=== PATIENT | male | born 1950 | race Caucasian/White ===

== ENCOUNTER 2018-07-14 18:35 | Emergency (ER) | payer OTHER ==
[2018-07-14] MEDS ORDERED: ONDANSETRON 4 MG/2 ML VIAL ONE (19:40)
[2018-07-14] MEDS ORDERED: MECLIZINE HCL 12.5 MG TAB ONE (19:41)
--- NOTE | 2018-07-14 19:49 | RAD REPORT ---
EXAM DESCRIPTION: RAD - Chest Single View - 07/14/2018 7:41 pm CLINICAL HISTORY: Dizziness Chest pain. COMPARISON: Chest Single View dated 07/14/2016; CHEST PA AND LAT 2 VIEW dated 10/09/2008; CHEST PA AND L AT 2 VIEW dated 09/26/2005 FINDINGS: Portable technique limits examination quality. The lungs are grossly clear. The heart is normal in size. No displaced fractures. IMPRESSION: No acute intrathoracic process suspected.
[2018-07-14 19:55] LABS: Absolute Lymphocytes (CBC) 1.5 K/uL (0.7-4.9); Absolute Monocytes 0.5 K/uL (0.1-1.3); Absolute Neutrophil 7.6 K/uL (1.8-8.0); Basophils % 0.6 % (0-1.3); Eosinophils % 1.1 % (0-4.4); Hematocrit 41.5 % (39.6-49.0); Lymphocytes % 15.4 % (15.3-44.8); MPV 8.3 fL (7.6-11.3); Monocytes % 5.3 % (3.3-12.3); RBC Red Blood Cell Count 4.61 M/uL (4.33-5.43)
[2018-07-14 19:57] LABS: Protime INR 1.07
[2018-07-14 20:13] LABS: ALT/SGPT 18 U/L (12-78); AST/SGOT 15 U/L (15-37); Albumin 3.5 g/dL (3.4-5.0); Alkaline Phosphatase 98 U/L (45-117); BUN Blood Urea Nitrogen 15 mg/dL (7-18); Bicarbonate 29 mmol/L (21-32); Bilirubin Direct 0.1 mg/dL (0-0.2); Bilirubin Total 0.4 mg/dL (0.2-1.0); Glucose Level 95 mg/dL (74-106); Magnesium 2.5 mg/dL (1.8-2.4); NT PRO-BNP 9 pg/mL (<125); Potassium 3.3 mmol/L (3.5-5.1); Sodium Level 140 mmol/L (136-145); Troponin (Emerg Dept Use Only) < 0.02 ng/mL (0.0-0.045)
--- NOTE | 2018-07-14 20:26 | RAD REPORT ---
EXAM DESCRIPTION: CT - Head Brain Wo Cont - 07/14/2018 8:20 pm CLINICAL HISTORY: DIZZINESS Hypertension, drowsiness COMPARISON: Ct Stroke Brain Wo Cont dated 07/14/2016 TECHNIQUE: All CT scans are performed using dose optimization technique as appropriate and may inclu de automated exposure control or mA/KV adjustment according to patient size. FINDINGS: No intracranial hemorrhage, hydrocephalus or extra-axial fluid collection.Mild periventric ular chronic microvascular ischemic changes.No areas of brain edema or evidence of midline shift. Mild fluid is present in both maxillary antra, greater on the left. The calvarium is intact. IMPRESSION: No acute intracranial abnormality. Mild maxillary sinus fluid.
[2018-07-14] MEDS ORDERED: DIAZEPAM 5 MG TABLET ONE (21:32)
--- NOTE | 2018-07-14 22:54 | ER ---
Nurse's Notes [facility] Name: Moo Villalta Age: 67 yrs Sex: Male : 1950 Arrival Date: 07/14/2018 Time: 18:39 Bed 17 Private MD: Pk Estrada E Diagnosis: Benign paroxysmal vertigo Presentation: 07/14 18:43 Presenting complaint: Patient states: Around 1400 got dizzy after I moved my head, feel jl7 like I'm kind of swimming and nauseous. Transition of care: patient was not received from another setting of care. Onset of symptoms was July 14, 2018 at 14:00. Risk Assessment: Do you want to hurt yourself or someone else? Patient reports no desire to harm self or others. Initial Sepsis Screen: Does the patient meet any 2 criteria? No. Patient's initial sepsis screen is negative. Does the patient have a suspected source of infection? No. Patient's initial sepsis screen is negative. Care prior to arrival: None. 18:43 Method Of Arrival: Ambulatory [facility] 18:43 Acuity: ANDREW 3 jl7 Triage Assessment: 18:45 General: Appears in no apparent distress. uncomfortable, Behavior is calm, cooperative, jl7 appropriate for age. Pain: Denies pain. Neuro: Level of Consciousness is awake, alert, obeys commands, Reports dizziness. Historical: - Allergies: 18:45 No Known Allergies; jl7 - Home Meds: 18:45 lisinopril Oral [Active]; Hydrochlorothiazide Oral [Active]; jl7 - PMHx: 18:45 Hypertension; jl7 - Immunization history:: Adult Immunizations not up to date. - Social history:: Smoking status: Patient/guardian denies using tobacco. - Ebola Screening: : No symptoms or risks identified at this time. Screenin:41 Abuse screen: Denies threats or abuse. Denies injuries from another. Nutritional rr5 screening: No deficits noted. Tuberculosis screening: No symptoms or risk factors identified. Fall Risk IV access (20 points). Assessment: 19:05 General: Appears in no apparent distress. uncomfortable, Behavior is calm, cooperative, rr5 appropriate for age. Pain: Denies pain. Neuro: Level of Consciousness is awake, alert, obeys commands, Oriented to person, place, time, situation, Appropriate for age. Neuro: Reports dizziness. Cardiovascular: Capillary refill < 3 seconds Patient's skin is warm and dry. Respiratory: Airway is patent Respiratory effort is even, unlabored, Respiratory pattern is regular, symmetrical. GI: Abdomen is flat, Reports nausea, vomiting. : No signs and/or symptoms were reported regarding the genitourinary system. EENT: No signs and/or symptoms were reported regarding the EENT system. Derm: Skin is intact, Skin temperature is warm. Musculoskeletal: Capillary refill < 3 seconds, Range of motion: intact in all extremities. 20:10 Reassessment: Patient appears in no apparent distress at this time. Patient and/or rr5 family updated on plan of care and expected duration. Pain level reassessed. Patient states symptoms have improved. 21:00 Reassessment: Patient appears in no apparent distress at this time. Patient and/or rr5 family updated on plan of care and expected duration. Pain level reassessed. Patient states feeling better. Patient states symptoms have improved. 21:56 Reassessment: Patient appears in no apparent distress at this time. Patient and/or rr5 family updated on plan of care and expected duration. Pain level reassessed. no complaints made. Patient denies pain at this time. Patient states feeling better. Patient states symptoms have improved. 23:07 Reassessment: Patient appears in no apparent distress at this time. Patient and/or rr5 family updated on plan of care and expected duration. Pain level reassessed. discharge instruction given and explained without complaints made. Patient denies pain at this time. Patient states feeling better. Patient states symptoms have improved. Vital Signs: 18:45 BP 140 / 96; Pulse 80; Resp 16 S; Temp 99.4(O); Pulse Ox 96% on R/A; Weight 84.37 kg jl7 (R); Height 5 ft. 11 in. (180.34 cm) (R); Pain 0/10; 20:00 BP 132 / 83; Pulse 73; Resp 19; Pulse Ox 99% ; rr5 21:00 BP 138 / 100; Pulse 71; Resp 16; Pulse Ox 99% ; rr5 21:56 BP 120 / 78; Pulse 74; Resp 16; Pulse Ox 98% ; rr5 23:00 BP 115 / 73; Pulse 73; Resp 16; Pulse Ox 99% ; rr5 18:45 Body Mass Index 25.94 (84.37 kg, 180.34 cm) jl7 ED Course: 18:39 Patient arrived in ED. mr 18:40 Pk Estrada MD is Private Physician. mr 18:44 Triage completed. jl7 18:45 Arm band placed on right wrist. jl7 19:03 Eduardo Khan NP is PHCP. pm1 19:05 Patient has correct armband on for positive identification. Placed in gown. Bed in low rr5 position. Call light in reach. Side rails up X2. cafeteria monitor on. Pulse ox on. NIBP on. 19:27 Kade Yung MD is Attending Physician. pm1 19:27 Cali Peng RN is Primary Nurse. rr5 19:41 XRAY Chest (1 view) In Process Unspecified. EDMS 19:48 Inserted saline lock: 22 gauge in left forearm, using aseptic technique. Blood gm collected. 19:48 Initial lab(s) drawn, by sc, sent to lab. gm 20:[address] 2 20:20 CT completed. Patient tolerated procedure well. Patient moved back from CT. nj 20:20 CT Head Brain wo Cont In Process Unspecified. EDMS 23:08 No provider procedures requiring assistance completed. IV discontinued, intact, rr5 bleeding controlled, No redness/swelling at site. Pressure dressing applied. Administered Medications: 19:50 Drug: Zofran 4 mg Route: IVP; Site: left forearm; rr5 23:00 Follow up: Response: No adverse reaction rr5 19:52 Drug: Meclizine 50 mg Route: PO; rr5 23:00 Follow up: Response: No adverse reaction rr5 21:25 Drug: Valium 5 mg Route: PO; rr5 23:00 Follow up: Response: No adverse reaction rr5 Outcome: 22:53 Discharge ordered by . pm1 23:09 Discharged to home ambulatory, with family. rr5 23:09 Condition: stable 23:09 Discharge instructions given to patient, family, Instructed on discharge instructions, follow up and referral plans. medication usage, Demonstrated understanding of instructions, follow-up care, medications, Prescriptions given X 3. 23:10 Patient left the ED. rr5 Signatures: Dispatcher [employer] EDMI Andres Lisette mr Eduardo Khan, AGRICULTURE ENGINEER AGRICULTURE ENGINEER pm1 Chapincito Salgado Jahala, RN RN jl7 Isabel Cano 2 Cali Peng, RN RN rr5 Isatu Grimm gm
--- NOTE | 2018-07-14 22:55 | EDPHYS ---
Physician Documentation [facility] Name: Moo Villalta Age: 67 yrs Sex: Male : 1950 Arrival Date: 07/14/2018 Time: 18:39 Bed 17 Private MD: Pk Estrada E ED Physician Kade Yung HPI: 07/14 19:30 This 67 yrs old Male presents to ER via Ambulatory with complaints of pm1 Dizziness, High Blood Pressure. 19:30 The patient presents with vertigo. Onset: The symptoms/episode began/occurred at 14:00. pm1 Context: occurred at home, occurred while the patient was turning head side to side. just prior to the episode the patient experienced no apparent symptoms. Modifying factors: The symptoms are alleviated by holding head still, the symptoms are aggravated by movement of head, standing up, changing position. Associated signs and symptoms: Pertinent negatives: abdominal pain, chest pain, focal weakness, nausea, near-syncope, numbness, shortness of breath, tingling, vomiting. Severity of symptoms: in the emergency department the symptoms are unchanged Pain is currently a 0 / 10. Patient's baseline: Neuro: alert and fully oriented, Motor: no deficits, Ambulation: walks without assistance, Speech: normal. The patient has experienced a previous episode, many years ago. The patient has not recently seen a physician. 19:30 Has had sore throat, cough and congestion for the past few days. pm1 Historical: - Allergies: 18:45 No Known Allergies; jl7 - Home Meds: 18:45 lisinopril Oral [Active]; Hydrochlorothiazide Oral [Active]; jl7 - PMHx: 18:45 Hypertension; jl7 - Immunization history:: Adult Immunizations not up to date. - Social history:: Smoking status: Patient/guardian denies using tobacco. - Ebola Screening: : No symptoms or risks identified at this time. ROS: 19:30 Constitutional: Negative for fever, chills, and weight loss, Eyes: Negative for injury, pm1 pain, redness, and discharge, Neck: Negative for injury, pain, and swelling, Cardiovascular: Negative for chest pain, palpitations, and edema. 19:30 Abdomen/GI: Negative for abdominal pain, nausea, vomiting, diarrhea, and constipation, Back: Negative for injury and pain, : Negative for injury, bleeding, discharge, and swelling, MS/Extremity: Negative for injury and deformity, Skin: Negative for injury, rash, and discoloration, Neuro: Negative for headache, weakness, numbness, tingling, and seizure. 19:30 ENT: Positive for sore throat. 19:30 Respiratory: Positive for cough, Negative for shortness of breath, sputum production, wheezing. Exam: 19:30 Constitutional: This is a well developed, well nourished patient who is awake, alert, pm1 and in no acute distress. Head/Face: Normocephalic, atraumatic. Eyes: Pupils equal round and reactive to light, extra-ocular motions intact. Lids and lashes normal. Conjunctiva and sclera are non-icteric and not injected. Cornea within normal limits. Periorbital areas with no swelling, redness, or edema. ENT: Nares patent. No nasal discharge, no septal abnormalities noted. Tympanic membranes are normal and external auditory canals are clear. Oropharynx with no redness, swelling, or masses, exudates, or evidence of obstruction, uvula midline. Mucous membranes moist. Neck: Trachea midline, no thyromegaly or masses palpated, and no cervical lymphadenopathy. Supple, full range of motion without nuchal rigidity, or vertebral point tenderness. No Meningismus. Chest/axilla: Normal chest wall appearance and motion. Nontender with no deformity. No lesions are appreciated. Cardiovascular: Regular rate and rhythm with a normal S1 and S2. No gallops, murmurs, or rubs. Normal PMI, no JVD. No pulse deficits. Respiratory: Lungs have equal breath sounds bilaterally, clear to auscultation and percussion. No rales, rhonchi or wheezes noted. No increased work of breathing, no retractions or nasal flaring. Abdomen/GI: Soft, non-tender, with normal bowel sounds. No distension or tympany. No guarding or rebound. No evidence of tenderness throughout. Back: No spinal tenderness. No costovertebral tenderness. Full range of motion. Skin: Warm, dry with normal turgor. Normal color with no rashes, no lesions, and no evidence of cellulitis. MS/ Extremity: Pulses equal, no cyanosis. Neurovascular intact. Full, normal range of motion. 19:30 Neuro: Orientation: is normal, Mentation: is normal, Cranial nerves: CN II- XII are normal as tested, Cerebellar function: Romberg testing is negative, normal finger to nose testing, heel to merida testing is normal, Motor: moves all fours, strength is normal, strength is 5/5 in all extremities, Sensation: is normal, no obvious gross deficits. 19:30 Neuro: Vestibular nystagmus present. Patient with positive [place]-Hallpike maneuver with symptom of vertigo resolving in 15 seconds. Vital Signs: 18:45 BP 140 / 96; Pulse 80; Resp 16 S; Temp 99.4(O); Pulse Ox 96% on R/A; Weight 84.37 kg jl7 (R); Height 5 ft. 11 in. (180.34 cm) (R); Pain 0/10; 20:00 BP 132 / 83; Pulse 73; Resp 19; Pulse Ox 99% ; rr5 21:00 BP 138 / 100; Pulse 71; Resp 16; Pulse Ox 99% ; rr5 21:56 BP 120 / 78; Pulse 74; Resp 16; Pulse Ox 98% ; rr5 23:00 BP 115 / 73; Pulse 73; Resp 16; Pulse Ox 99% ; rr5 18:45 Body Mass Index 25.94 (84.37 kg, 180.34 cm) jl7 MDM: 19:18 Patient medically screened. pm1 21:20 ED course: Patient rates vertigo current 2-3 from 7 with meclizine. He would like it pm1 better if possible. Will give the patient Valium. 22:52 Data reviewed: vital signs. Data interpreted: Pulse oximetry: on room air is 98 %. pm1 Interpretation: normal. Counseling: I had a detailed discussion with the patient and/or guardian regarding: the historical points, exam findings, and any diagnostic results supporting the discharge/admit diagnosis, lab results, radiology results, the need for outpatient follow up, to return to the emergency department if symptoms worsen or persist or if there are any questions or concerns that arise at home. 07/14 19:19 Order name: Basic Metabolic Panel; Complete Time: 20:55 pm1 07/14 19:19 Order name: CBC with Diff; Complete Time: 20:09 pm1 07/14 19:19 Order name: LFT's; Complete Time: 20:55 pm1 07/14 19:19 Order name: Magnesium; Complete Time: 20:55 pm1 07/14 19:19 Order name: NT PRO-BNP; Complete Time: 20:55 pm1 07/14 19:19 Order name: PT-INR; Complete Time: 20:55 pm1 07/14 19:19 Order name: Troponin (emerg Dept Use Only); Complete Time: 20:55 pm1 07/14 19:19 Order name: XRAY Chest (1 view); Complete Time: 20:09 pm1 07/14 19:19 Order name: EKG; Complete Time: 19:20 pm1 07/14 19:19 Order name: Cardiac monitoring; Complete Time: 20:12 pm1 07/14 19:19 Order name: CT Head Brain wo Cont; Complete Time: 20:55 pm1 07/14 19:19 Order name: EKG - Nurse/Tech; Complete Time: 20:12 pm1 07/14 19:19 Order name: IV Saline Lock; Complete Time: 20:12 pm1 07/14 19:19 Order name: Labs collected and sent; Complete Time: 20:13 pm1 07/14 19:19 Order name: O2 Per Protocol; Complete Time: 20:13 pm1 07/14 19:19 Order name: O2 Sat Monitoring; Complete Time: 20:13 pm1 Administered Medications: 19:50 Drug: Zofran 4 mg Route: IVP; Site: left forearm; rr5 23:00 Follow up: Response: No adverse reaction rr5 19:52 Drug: Meclizine 50 mg Route: PO; rr5 23:00 Follow up: Response: No adverse reaction rr5 21:25 Drug: Valium 5 mg Route: PO; rr5 23:00 Follow up: Response: No adverse reaction rr5 Disposition: 07/15 02:54 Co-signature as Attending Physician, Kade Yung MD. ma2 Disposition: 07/14/18 22:53 Discharged to Home. Impression: Benign paroxysmal vertigo. - Condition is Stable. - Discharge Instructions: Benign Positional Vertigo. - Prescriptions for Meclizine 25 mg Oral Tablet - take 1 tablet by ORAL route every 8 hours As needed; 30 tablet. Valium 2 mg Oral Tablet - take 1 tablet by ORAL route every 8 hours As needed; 20 tablet. Zofran 4 mg Oral Tablet - take 1 tablet by ORAL route every 12 hours As needed; 20 tablet. - Medication Reconciliation Form, Thank You Letter, Antibiotic Education, Prescription Opioid Use form. - Follow up: Emergency Department; When: As needed; Reason: Worsening of condition. Follow up: Private Physician; When: 2 - 3 days; Reason: Recheck today's complaints, Continuance of care, Re-evaluation by your physician. - Problem is new. - Symptoms have improved. Signatures: Dispatcher [employer] EDMS Eduardo Khan NP POWER PLANT MECHANIC pm1 Elías Ramsey RN RN jl7 Kade Yung MD MD ma2 Cali Peng RN RN rr5 Corrections: (The following items were deleted from the chart) 07/14 23:10 22:53 07/14/2018 22:53 Discharged to Home. Impression: Benign paroxysmal vertigo. rr5 Condition is Stable. Forms are Medication Reconciliation Form, Thank You Letter, Antibiotic Education, Prescription Opioid Use. Follow up: Emergency Department; When: As needed; Reason: Worsening of condition. Follow up: Private Physician; When: 2 - 3 days; Reason: Recheck today's complaints, Continuance of care, Re-evaluation by your physician. Problem is new. Symptoms have improved. pm1
[2018-07-14 23:45] VITALS: TEMP 99.4
[2018-07-14 23:50] VITALS: BP 115/73; O2SAT 99
--- NOTE | 2018-07-15 12:04 | EKG ---
Test Date: 2018-07-14 Test Time: 19:53:55 Tire Repairer: RR MEASUREMENT RESULTS: Intervals: Rate: 71 KS: 180 QRSD: 94 QT: 402 QTc: 436 [place]: P: 63 KS: 180 QRS: -26 T: 19 INTERPRETIVE STATEMENTS: Sinus rhythm with occasional premature ventricular complexes Otherwise normal ECG Compared to ECG 07/14/2016 10:48:11 Ventricular premature complex(es) now present Left-axis deviation no longer present Electronically Signed On 07-15-18 12:02:54 GREEN PIPEFITTER by Indra Springer
== END 2018-07-14 23:10 | disposition home or self-care (01) ==
LOC: ER 18:35
DX: H81.10 Benign paroxysmal vertigo, unspecified ear (principal); I10 Essential (primary) hypertension
CPT/HCPCS: 36415; 70450; 71045; 80048; 80076; 83735; 83880; 84484; 85025; 85610; 93005; 96374; 99285; J2405

== ENCOUNTER 2022-11-03 08:29 | Inpatient (IN) | payer OTHER ==
--- OUTSIDE RECORDS SUMMARY | 2022-11-03 08:45 | XMS REPORT | Continuity of Care Document ---
:1950 Author Organization [facility] t Address [address] [place] [address] [place] [id number] Care Team Providers Name Role Phone RICHAR TOWNSEND Primary Care Physician Unavailable CARSON FOY Attending Clinician Unavailable Carson Foy MD Attending Clinician , [facility] Regulo Parker Attending Clinician Unavailable Payers Payer Name Policy Type Policy Number Effective Date Expiration Date S bogdan [employer] MEDICARE O [id number] 2021 POS PPO 00:00:00 Problems Condition Condition Condition Status Onset Resolution Last Treating Co mments Source Name Details Category Date Date Treatment Clinician Date [id number] Cancer of Problem Active Comm on prostate [facility] w/low - [facility] (T1-2a, Medical [place]<7 Center & PSA<10) [id number] BPH loc w Problem Active Com mon urin [facility] obs/LUTS - [facility] Malignant CA of Problem Active Common tumor of prostate [facility] prostate - [facility] Allergies, Adverse Reactions, Alerts Allergy Allergy Status Severity Reaction(s) Onset Inactive Treating Comm ents Source Name Type Date Date Clinician NO KNOWN Allergy Active [facility] Social History Social Habit Start Date Stop Date Quantity Comments Source History of Tobacco Use Co mmon [facility] Sex Assigned At Com mon [facility] Smoking Status Start Date Stop Date Source Never Smoker Common [facility] Medications Ordered Filled Start Stop Current Ordering Indication Dosage Frequency Signature Comments Components Source Medication Medication Date Date Medication? Clinician (SIG) Name Name Gentamicin Gentamicin 2019-07 No 160mg Common 80mg 80mg 08-04 Spirit 00:00: [facility] Gentamicin Gentamicin 2019-07 No 160mg Common 80mg 80mg 08-04 [facility] 00:00: [facility] hydroCHLORO hydroCHLORO No 1{capsu QD hydroCHLOR thiazide thiazide le_in_t Othiazide 12.5 MG 12.5 MG he_morn 12.5 MG ing} Fish Oil Fish Oil No 1{capsu QD Fish Oil 1000 MG 1000 MG le} 1000 MG Lisinopril Lisinopril No 1{table QD Lisinopril 10 MG 10 MG t} 10 MG Vitamin D Vitamin D No Vitamin D 125 MCG 125 MCG 125 MCG (5000 UT) (5000 UT) (5000 UT) Vitamin D Vitamin D No Vitamin D 125 MCG 125 MCG 125 MCG (5000 UT) (5000 UT) (5000 UT) hydroCHLORO hydroCHLORO No 1{capsu QD hydroCHLOR thiazide thiazide le_in_t Othiazide 12.5 MG 12.5 MG he_morn 12.5 MG ing} Lisinopril Lisinopril No 1{table QD Lisinopril 20 MG 20 MG t} 20 MG Magnesium Magnesium No Magnesium Glycinate Glycinate Glycinate 100 MG 100 MG 100 MG Fish Oil Fish Oil No 1{capsu QD Fish Oil 1000 MG 1000 MG le} 1000 MG Zinc 100 MG Zinc 100 MG No 1{table QD Zinc 100 t} MG Vital Signs Vital Name Observation Time Observation Value Comments Source height 2022-02-26 14:15:00 71 [in_i] [facility] weight 2022-02-26 14:15:00 183 [lb_av] [facility] temperature 2022-02-26 14:15:00 98.6 [degF] [facility] bmi 2022-02-26 14:15:00 25.52 kg/m2 [facility] oximetry 2022-02-26 14:15:00 99 % [facility] respiratory rate 2022-02-26 14:15:00 18 /min Comm on [facility] blood pressure 2022-02-26 14:15:00 138 mm[Hg] Common [facility] - systolic [facility] blood pressure 2022-02-26 14:15:00 73 mm[Hg] [facility] diastolic [facility] height 2021-12-11 13:00:00 71 [in_i] [facility] weight 2021-12-11 13:00:00 174 [lb_av] [facility] temperature 2021-12-11 13:00:00 97.9 [degF] [facility] bmi 2021-12-11 13:00:00 24.27 kg/m2 [facility] oximetry 2021-12-11 13:00:00 99 % [facility] respiratory rate 2021-12-11 13:00:00 16 /min Comm on [facility] blood pressure 2021-12-11 13:00:00 149 mm[Hg] Common [facility] systolic [facility] blood pressure 2021-12-11 13:00:00 78 mm[Hg] [facility] diastolic [facility] Procedures Procedure Date / Time Performed Performing Clinician [facility] e MR PELVIS WITH & 2022-01-03 16:54:00 Carson Foy [facility] WITHOUT IV CONTRAST Center Plan of Care Planned Activity Planned Date Details Comments Source Future Scheduled 2023-03-[address] [facility] Test 00:00:00 (Season Ended) [code = [facility] INFLUENZA VACCINE (Season Ended)] Future Scheduled 2022-07-[address] [facility] 00:00:00 WELLNESS (YEAR 2 or Medical Center FIRST YEAR if no IPPE) [code = MEDICARE ANNUAL WELLNESS (YEAR 2 or FIRST YEAR if no IPPE)] Future Scheduled 2022-07-[address] [facility] Test 00:00:00 (12+) [code = Medical Center DEPRESSION SCREENING (12+)] Future Scheduled 2022-07-06 FALLS RISK SCREENING [facility] Test 00:00:00 [code = FALLS RISK Medical C enter SCREENING] Future Scheduled 2017 PNEUMOCOCCAL 65+ YRS ([address] [facility] Test 00:00:00 - PCV) [code = Medical Cente r PNEUMOCOCCAL 65+ YRS (1 - PCV)] Future Scheduled 2002 SHINGLES VACCINES ([address] [facility] Test 00:00:00 2) [code = SHINGLES Medical Center VACCINES (1 of 2)] Future Scheduled 1971-09-17 DTAP/TDAP/TD [facility]ACCINES [facility] 00:00:00 (1 - Tdap) [code = Medical C enter DTAP/TDAP/TD VACCINES (1 - Tdap)] Future Scheduled 1970 HEPATITIS C SCREENING [facility] 00:00:00 [code = HEPATITIS C Medical Center SCREENING] Future Scheduled [address] [facility] Test 00:00:00 Counseling and Medical Cente r Screening (12+) [code = Tobacco Cessation Counseling and Screening (12+)] Future Scheduled 1951-03-19 COVID-19 VACCINE (#1) [facility] 00:00:00 [code = COVID-[address] VACCINE (#1)] Future Scheduled 1952 Screening for malignant [facility] Test 00:00:00 neoplasm of colon Medical Ce nter (procedure) [code = 526000252] Future Scheduled 1952 Screening for malignant [facility] Test 00:00:00 neoplasm of colon Medical Ce nter (procedure) [code = 212249369] Future Scheduled 1952 Screening for malignant [facility] Test 00:00:00 neoplasm of colon Medical Ce nter (procedure) [code = 036500912] Future Scheduled 1952 Screening for malignant [facility] Test 00:00:00 neoplasm of colon Medical Ce nter (procedure) [code = 687512301] Future Scheduled 1950 Sigmoidoscopy [code = [facility] Test 00:00:00 Sigmoidoscopy] Medical Cente r Future Scheduled 1952 CT Colonography (combo) [facility] Test 00:00:00 [code = CT Colonography [facility] (combo)] Encounters Start End Encounter Admission Attending Care Care Encounter Source Date/Time Date/Time Type Type Clinicians Facility Department ID 2021-07-31 Outpatient [facility] [id number] Common 13:11:37 [id number] [facility] 2021-07-31 Outpatient [facility] [id number] Common 12:11:04 [id number] [facility] 2022-02-26 2022-02-26 OFFICE [facility] [id number] Co mmon 00:00:00 00:00:00 VISIT EST Spir it PT LEVEL 3 - [facility] 2022-01-03 2022-01-03 Outpatient [place] [facility] [id number] SLE 14:51:01 23:59:00 [place] 2022-01-03 2022-01-03 Hospital LawCarson [facility] [id number] 14:51:01 23:59:[address] [facility] Regulo [facility] 2021-12-16 2021-12-16 Outside Law [facility] [id number] 00:00:00 00:00:00 Orders [facility] 2021-12-11 2021-12-11 OFFICE [facility] [id number] Co mmon 00:00:00 00:00:00 VISIT EST Spir it PT LEVEL 3 [facility] 2021-01-11 2021-01-11 Outpatient [facility] [id number] Common 00:00:00 00:00:00 [facility] 2021-01-03 2021-01-03 Outpatient [facility] [id number] Common 00:00:00 00:00:00 [facility] 2020-06-11 2020-06-11 Outpatient [facility] [id number] Common 00:00:00 00:00:00 [facility] Results Test Description Test Time Test Comments Results Result [facility] e Comments MR, PELVIS, 2022-01-13 Unlisted Reason WITHOUT / WITH IV 12:12:00 for Exam - Click CONTRAST Yes and Enter Reason [facility] for MOO VILLALTA Exam->CANCER OF ELPIDIO : 1950 PROSTATE W/LOW Sex: RECURRENCE RISK M *FINAL REPORT TECHNIQUE: MRI of the prostate WITHOUT and WITH intravenous contrast. INDICATION: Unlisted Reason for ExamCANCER OF PROSTATE W/LOW RECURRENCE RISK. COMPARISON: None. FINDINGS: PROSTATE: The prostate measures 5.2 x 3.3 x 5.6 cm (50 mL). There are several BPH nodules in the transition zone. One area of restricted diffusion in the left mid gland transition zone corresponds to a circumscribed BPH nodule which measures 1 cm, PI-RADS 1. An area of hazy, decreased T2-weighted signal in the right apical peripheral zone which mildly enhances and mildly restricted diffusion is most likely prostatitis, PI-RADS 2. SEMINAL VESICLES: Unremarkable. LYMPH NODES: No pelvic lymphadenopathy. BLADDER: The bladder wall is diffusely thickened.RECTUM: Unremarkable. PERITONEUM/RETROPERI TONEUM: No free fluid. BONES AND SOFT TISSUES: A fat intensity lesion in the right gluteus minimus muscle measures 3.4 cm and is consistent with a lipoma. Moderate diverticulosis of the partially visualized colon. IMPRESSION: 1.There are no suspicious focal prostate lesions. An area of wedge-shaped restricted diffusion in the right apical peripheral zone is most likely prostatitis. PI-RADS 2 2.Moderate prostatomegaly with findings of chronic bladder outlet obstruction Signed: Galindo Chawla MDReport Verified Date/Time: 01/13/2022 12:12:27 Reading Location: [facility] B1 C013Y CT Body Reading Room
[2022-11-03 09:21] LABS: Absolute Lymphocytes (CBC) 1.3 K/uL (0.7-4.9); Hematocrit 46.3 % (39.6-49.0); Lymphocytes % 18.1 % (15.3-44.8); MCV 93.7 fL (80-100); MPV 7.8 fL (7.6-11.3); RBC Red Blood Cell Count 4.94 M/uL (4.33-5.43)
[2022-11-03 09:25] LABS: Protime INR 0.9
--- NOTE | 2022-11-03 09:25 | RAD REPORT ---
EXAM DESCRIPTION: CT - Ct Stroke Brain Wo Cont - 11/03/2022 9:18 am CLINICAL HISTORY: STROKE ALERT COMPARISON: Head angio dated 11/03/2022; Head Brain Wo Cont dated 07/14/2018 TECHNIQUE: All CT scans are performed using dose optimization technique as appropriate and may inclu de automated exposure control or mA/KV adjustment according to patient size. FINDINGS: No intracranial hemorrhage, hydrocephalus or extra-axial fluid collection.No areas of brai n edema or evidence of midline shift. Mild chronic small vessel ischemic changes. The paranasal sinuses and mastoids are clear. The calvarium is intact. IMPRESSION: No acute intracranial abnormality. Conveyed to Dr. Bunch by Dr. Quesada at 0917 on 11/03/22
--- NOTE | 2022-11-03 09:26 | RAD REPORT ---
EXAM DESCRIPTION: CT - Head angio - 11/03/2022 9:19 am CLINICAL HISTORY: DIZZINESS COMPARISON: Head Brain Wo Cont dated 07/14/2018; Ct Stroke Brain Wo Cont dated 07/14/2016 TECHNIQUE: CT angiography of the head was performed with maximum intensity reformatted images. All CT scans are performed using dose optimization technique as appropriate and may include automated exposure control or mA/KV adjustment according to patient size. FINDINGS: Anterior circulation: No aneurysm or large vessel occlusion. No hemodynamically significant stenosis. No arteriovenous malf ormation identified. Posterior circulation: No aneurysm or large vessel occlusion. No hemodynamically significant stenosis. No arteriovenous malf ormation identified. Left dominant vertebral artery. IMPRESSION: No significant flow abnormality is detected.
--- NOTE | 2022-11-03 09:27 | RAD REPORT ---
EXAM DESCRIPTION: CT - Neck Angio - 11/03/2022 9:19 am CLINICAL HISTORY: dizziness COMPARISON: No comparisons TECHNIQUE: CT angiography of the neck vessels was performed with maximum intensity reformatted image s. All CT scans are performed using dose optimization technique as appropriate and may include automated exposure control or mA/KV adjustment according to patient size. FINDINGS: A left aortic arch is identified with normal three vessel configuration of the great vesse ls. No significant flow abnormality is seen of the common carotid bilaterally. No significant stenosis is identified involving the cervical segments of both internal carotid arteri es. Normal flow is seen within both vertebral arteries. Left dominant vertebral artery . IMPRESSION: No significant flow abnormality of the neck vessels is identified.
[2022-11-03] MEDS ORDERED: TENECTEPLASE 50 MG/10 ML VIAL IV ONE (09:35)
[2022-11-03 09:38] LABS: Potassium 3.6 mEq/L (3.5-5.1)
[2022-11-03 09:39] LABS: Troponin High Sensitivity 286.3 pg/mL (<58.9)
--- NOTE | 2022-11-03 09:44 | RAD REPORT ---
EXAM DESCRIPTION: RAD - Chest Single View - 11/03/2022 9:25 am CLINICAL HISTORY: dizziness COMPARISON: Chest Single View dated 07/14/2018; Chest Single View dated 07/14/2016; CHEST PA AND LAT 2 V IEW dated 10/09/2008; CHEST PA AND LAT 2 VIEW dated 09/26/2005 FINDINGS: Lines: None. Lungs: No evidence of edema or pneumonia. Pleural: No significant pleural effusions or pneumothorax. Cardiac: The heart size is within normal limits. Mediastinum: Within normal limits. Bones: No acute fractures. Other: None IMPRESSION: No acute cardiopulmonary disease.
--- NOTE | 2022-11-03 09:46 | ER ---
Nurse's Notes [facility] Name: Moo Villalta Age: 72 yrs Sex: Male : 1950 Arrival Date: 11/03/2022 Time: 08:29 Bed 8 Private MD: Julio Turner B Diagnosis: Dizziness and giddiness;Weakness;Cerebral infarction, unspecified Presentation: 11/03 08:46 Chief complaint: Patient states: Around 6 AM using restroom, sneezed then started to jl7 feel dizzy, weak, high BP, slight CP. Coronavirus screen: Vaccine status: Patient reports receiving the 2nd dose of the covid vaccine. Client denies travel out of the [place] in the last 14 days. At this time, the client does not indicate any symptoms associated with coronavirus-19. Ebola Screen: Patient denies travel to an Ebola-affected area in the 21 days before illness onset. Initial Sepsis Screen: Does the patient meet any 2 criteria? No. Patient's initial sepsis screen is negative. Does the patient have a suspected source of infection? No. Patient's initial sepsis screen is negative. Risk Assessment: Do you want to hurt yourself or someone else? Patient reports no desire to harm self or others. Onset of symptoms was November 03, 2022. 08:46 Method Of Arrival: Ambulatory [facility] 08:46 Acuity: ANDREW 2 jl7 Triage Assessment: 08:46 General: Appears in no apparent distress. Behavior is calm, cooperative, appropriate ll1 for age. Pain: Denies pain. Neuro: Reports dizziness, high BP. Historical: - Allergies: 08:46 No Known Allergies; jl7 - PMHx: 08:46 Hypertension; prostate problems; jl7 - Immunization history:: Client reports receiving the 2nd dose of the Covid vaccine. - Social history:: Smoking status: Patient/guardian denies using tobacco, the patient reports quitting approximately 15 years ago. - Family history:: not pertinent. - Hospitalizations: : No recent hospitalization is reported. Screenin:27 [facility] ED Fall Risk Assessment (Adult) History of falling in the last 3 months, ld1 including since admission No falls in past 3 months (0 pts). Abuse screen: Denies threats or abuse. Denies injuries from another. Nutritional screening: No deficits noted. Tuberculosis screening: No symptoms or risk factors identified. Assessment: 09:00 Reassessment: Pt to CT. ld1 09:00 Reassessment: Pt reports last known well 0630am today. ld1 09:25 Reassessment: No changes from previously documented assessment. General: Appears in no ld1 apparent distress. comfortable, Behavior is calm, cooperative, appropriate for age. Pain: Denies pain. Neuro: Level of Consciousness is awake, alert, obeys commands, Oriented to person, place, time, situation, Sponge Press Operator are equal bilaterally Moves all extremities. Gait is steady, Speech is normal, Facial symmetry appears normal, Reports dizziness. Cardiovascular: Capillary refill < 3 seconds Patient's skin is warm and dry. Respiratory: Airway is patent Respiratory effort is even, unlabored. GI: Abdomen is flat, non-distended. : No signs and/or symptoms were reported regarding the genitourinary system. EENT: No signs and/or symptoms were reported regarding the EENT system. Derm: No signs and/or symptoms reported regarding the dermatologic system. Musculoskeletal: No signs and/or symptoms reported regarding the musculoskeletal system. 12:13 Reassessment: Patient appears in no apparent distress at this time. No changes from ld1 previously documented assessment. Patient and/or family updated on plan of care and expected duration. Pain level reassessed. Patient is alert, oriented x 3, equal unlabored respirations, skin warm/dry/pink. 13:15 Reassessment: Pt vomiting at this time. See [facility] for medication administered. ld1 14:34 Reassessment: Patient appears in no apparent distress at this time. No changes from ld1 previously documented assessment. Patient and/or family updated on plan of care and expected duration. Pain level reassessed. Patient is alert, oriented x 3, equal unlabored respirations, skin warm/dry/pink. Vital Signs: 08:46 BP 178 / 88; Pulse 67; Resp 16; Temp 98.2; Pulse Ox 99% ; Weight 81.65 kg; Height 5 ft. jl7 11 in. ; Pain 0/10; 09:11 Weight 83.01 kg; ld1 09:22 BP 168 / 96; Pulse 73; Resp 18; Pulse Ox 98% on R/A; ld1 09:39 BP 176 / 93; Pulse 66; Resp 18; Pulse Ox 99% on R/A; ld1 12:13 BP 148 / 82; Pulse 64; Resp 18; Pulse Ox 96% on R/A; ld1 14:33 BP 144 / 80; Pulse 58; Resp 12; Pulse Ox 95% on R/A; ld1 14:43 BP 140 / 72; Pulse 58; Resp 18; Pulse Ox 94% on R/A; ld1 09:11 Body Mass Index 25.52 (83.01 kg, 180.34 cm) ld1 08:46 Pain Scale: Adult jl7 NIH Stroke Scale Scores: 08:55 NIHSS Score: 0 rn 09:27 NIHSS Score: 0 ld1 ED Course: 08:31 Patient arrived in ED. rg4 08:31 Julio Turner MD is Private Physician. rg4 08:35 Noah Bunch MD is Attending Physician. rn 08:46 Arm band placed on Patient placed in an exam room, on a stretcher. jl7 08:47 Triage completed. jl7 09:00 Patient has correct armband on for positive identification. Placed in gown. Bed in low ld1 position. Call light in reach. Side rails up X2. lace machine operator on. Pulse ox on. NIBP on. Door closed. Noise minimized. Warm blanket given. 09:00 Inserted saline lock: 22 gauge in left antecubital area, using aseptic technique. Blood ld1 collected. 09:00 No provider procedures requiring assistance completed. ld1 09:12 Shefali Monsivais, RN is Primary Nurse. ld1 09:20 CT Stroke Brain w/o Contrast In Process Unspecified. EDMS 09:[address] In Process Unspecified. EDMS 09:[address] In Process Unspecified. EDMS 09:27 Stroke CXR 1 View In Process Unspecified. EDMS 09:39 Notified ED physician of a critical lab result(s). Troponin 286.3. jl7 09:44 Cali Bunch MD is Hospitalizing Provider. rn 14:59 Patient admitted, IV remains in place. ld1 Administered Medications: 09:34 Drug: TNK FOR STROKE - Tenecteplase IV 0.25 mg/kg {Co-Signature: jl7 (Roxy, ld1 Elías MAN).} Route: IV; Rate: per protocol; Site: left antecubital; 10:14 Follow up: Response: No adverse reaction ld1 10:14 Drug: foLIC Acid IVPB 1 mg Route: IVPB; Site: left antecubital; ld1 Medication: 09:27 VIS not applicable for this client. ld1 Output: 10:47 Urine: 400ml (Voided); Total: 400ml. nj1 Outcome: 09:45 Decision to Hospitalize by Provider. rn 14:58 Admitted to ICU accompanied by nurse, via stretcher, room 5, with chart, Report called ld1 to MAGDA Mcguire 14:58 Condition: stable 14:58 Instructed on the need for admit. 15:32 Patient left the ED. ld1 NIH Stroke Scale - NIH Stroke Score Date: 11/03/2022 Time: 08:55 Total Score = 0 10. Dysarthria (speech clarity - read or repeat words) - 0(Normal) 11. Extinction and Inattention (visual/tactile/auditory/spatial/personal) - 0(No abnormality) 1a. Level of Consciousness (LOC) - 0(Alert) 1b. Level of Consciousness (LOC) (Month \T\ Age) - 0(Both) 1c. LOC Commands (Open \T\ Closes Eyes/Floor Service Worker Spring) - 0(Both) 2. Best Gaze (Lateral Gaze Paresis) - 0(Normal) 3. Visual Field Loss - 0(No visual loss) 4. Facial Palsy - 0(Normal) 5a. Left Arm: Motor (10-second hold) - 0(No drift) 5b. Right Arm: Motor (10-second hold) - 0(No drift) 6a. Left Leg: Motor (5-second hold - always test supine) - 0(No drift) 6b. Right Leg: Motor (5-second hold - always test supine) - 0(No drift) 7. Limb Ataxia (finger/nose \T\ heel/[place] - test with eyes open) - 0(Absent) 8. Sensory Loss (pinprick arms/legs/face) - 0(Normal) 9. Best Language: Aphasia (description/naming/reading) - 0(No aphasia) Initials: magda NIH Stroke Scale - NIH Stroke Score Date: 11/03/2022 Time: 09:27 Total Score = 0 10. Dysarthria (speech clarity - read or repeat words) - 0(Normal) 11. Extinction and Inattention (visual/tactile/auditory/spatial/personal) - 0(No abnormality) 1a. Level of Consciousness (LOC) - 0(Alert) 1b. Level of Consciousness (LOC) (Month \T\ Age) - 0(Both) 1c. LOC Commands (Open \T\ Closes Eyes/Floor Service Worker Spring) - 0(Both) 2. Best Gaze (Lateral Gaze Paresis) - 0(Normal) 3. Visual Field Loss - 0(No visual loss) 4. Facial Palsy - 0(Normal) 5a. Left Arm: Motor (10-second hold) - 0(No drift) 5b. Right Arm: Motor (10-second hold) - 0(No drift) 6a. Left Leg: Motor (5-second hold - always test supine) - 0(No drift) 6b. Right Leg: Motor (5-second hold - always test supine) - 0(No drift) 7. Limb Ataxia (finger/nose \T\ heel/mer[place] - test with eyes open) - 0(Absent) 8. Sensory Loss (pinprick arms/legs/face) - 0(Normal) 9. Best Language: Aphasia (description/naming/reading) - 0(No aphasia) Initials: ld1 Signatures: Dispatcher [employer] EDMS Noah Bunch MD MD rn Garcia, Rubi rg4 Elías Ramsey RN RN jl7 Deejay Espinoza RN RN ll1 Shefali Monsivais RN RN ld1 Riri Cisneros RN RN nj1 Elías Ramsey RN jl7
--- NOTE | 2022-11-03 09:46 | EDPHYS ---
Physician Documentation [facility] Name: Moo Villalta Age: 72 yrs Sex: Male : 1950 Arrival Date: 11/03/2022 Time: 08:29 Bed 8 Private MD: Julio Turner B ED Physician Noah Bunch HPI: 11/03 08:56 This 72 yrs old Male presents to ER via Ambulatory with complaints of Dizziness, High rn Blood Pressure. 08:56 The patient presents with dizziness, feeling off balance, sense of spinning. Onset: The rn symptoms/episode began/occurred at 06:30. Modifying factors: The symptoms are alleviated by nothing, the symptoms are aggravated by movement of head, standing up, changing position. Associated signs and symptoms: Pertinent positives: nausea, Pertinent negatives: chest pain, diaphoresis, seizure, shortness of breath, syncope. Severity of symptoms: At their worst the symptoms were moderate in the emergency department the symptoms are unchanged. The patient has experienced similar episodes in the past. The patient has not recently seen a physician. Pt reports using the bathroom, began sneezing, felt immediate head pressure and dizziness, thought was his vertigo which he has had in past, but feels somewhat different to him. Right arm exhibited some jerking movements, but has resolved since then. No trauma. Reports BP high. NO seizure. . Historical: - Allergies: 08:46 No Known Allergies; jl7 - PMHx: 08:46 Hypertension; prostate problems; jl7 - Immunization history:: Client reports receiving the 2nd dose of the Covid vaccine. - Social history:: Smoking status: Patient/guardian denies using tobacco, the patient reports quitting approximately 15 years ago. - Family history:: not pertinent. - Hospitalizations: : No recent hospitalization is reported. ROS: 08:56 Constitutional: Negative for fever, chills, and weight loss, Eyes: Negative for injury, rn pain, redness, and discharge, Neck: Negative for injury, pain, and swelling, Cardiovascular: Negative for chest pain, palpitations, and edema, Respiratory: Negative for shortness of breath, cough, wheezing, and pleuritic chest pain, Abdomen/GI: Negative for abdominal pain, vomiting, diarrhea, and constipation, MS/Extremity: Negative for injury and deformity, Skin: Negative for injury, rash, and discoloration, Neuro: + headache and dizziness Exam: 08:56 Constitutional: This is a well developed, well nourished patient who is awake, alert, rn and in no acute distress. Head/Face: Normocephalic, atraumatic. Eyes: Pupils equal round and reactive to light, extra-ocular motions intact. Cardiovascular: Regular rate and rhythm. No pulse deficits. Respiratory: No increased work of breathing, no retractions or nasal flaring. Skin: Warm, dry MS/ Extremity: Pulses equal, no cyanosis. FROM bilateral hips without grimace or wincing. Neuro: Awake and alert, GCS 15, oriented to person, place, time, and situation. Cranial nerves II-XII grossly intact. Motor strength 4/5 in all extremities. Sensory grossly intact. Right arm some tremor when outstretched but no drift. [employer] Processor strength equal. 10:04 ECG was reviewed by the Attending Physician. rn Vital Signs: 08:46 BP 178 / 88; Pulse 67; Resp 16; Temp 98.2; Pulse Ox 99% ; Weight 81.65 kg; Height 5 ft. jl7 11 in. ; Pain 0/10; 09:11 Weight 83.01 kg; ld1 09:22 BP 168 / 96; Pulse 73; Resp 18; Pulse Ox 98% on R/A; ld1 09:39 BP 176 / 93; Pulse 66; Resp 18; Pulse Ox 99% on R/A; ld1 12:13 BP 148 / 82; Pulse 64; Resp 18; Pulse Ox 96% on R/A; ld1 14:33 BP 144 / 80; Pulse 58; Resp 12; Pulse Ox 95% on R/A; ld1 14:43 BP 140 / 72; Pulse 58; Resp 18; Pulse Ox 94% on R/A; ld1 09:11 Body Mass Index 25.52 (83.01 kg, 180.34 cm) ld1 08:46 Pain Scale: Adult [facility] NIH Stroke Scale Scores: 08:55 NIHSS Score: 0 rn 09:27 NIHSS Score: 0 ld1 MDM: 08:35 Patient medically screened. 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 Carney, rn recommends TNKase after discussion of case. Possible posterior CVA.. 09:41 Differential diagnosis: cardiac arrhythmia, CVA, generalized weakness, idiopathic rn dizziness, near-syncope, TIA, vertigo. Data reviewed: vital signs, nurses notes, lab test result(s), EKG, radiologic studies, CT scan, and as a result, I will admit patient. Consideration of Admission/Observation Patient was admitted/placed on observation. Escalation of care including admission/observation considered. Counseling: I had a detailed discussion with the patient and/or guardian regarding: the historical points, exam findings, and any diagnostic results supporting the discharge/admit diagnosis, lab results, radiology results, the need for further work-up and treatment in the hospital. Response to treatment: the patient's symptoms have mildly improved after treatment, and as a result, I will admit patient. 11/03 08:55 Order name: Basic Metabolic Panel; Complete Time: 09:41 11/03 08:55 Order name: CBC with Diff; Complete Time: 09:39 11/03 08:55 Order name: High Sensitivity Troponin; Complete Time: 09:41 11/03 08:55 Order name: Protime (+inr); Complete Time: 09:39 11/03 08:55 Order name: Ptt, Activated; Complete Time: 09:39 11/03 09:30 Order name: Glucose, Ancillary Testing; Complete Time: 09:39 EDW[facility] 11/03 09:39 Order name: CREATININE WHOLE BLOOD; Complete Time: 09:41 ED[facility] 11/03 11:35 Order name: Magnesium; Complete Time: 14:53 [facility] 11/03 11:35 Order name: Phosphorus; Complete Time: 14:53 [facility] 11/03 11:35 Order name: T4 Free; Complete Time: 14:53 [facility] 11/03 11:35 Order name: Thyroid Stimulating Hormone; Complete Time: 14:53 [facility] 11/03 11:35 Order name: Urinalysis w/ reflexes [facility] 11/03 11:35 Order name: Basic Metabolic Panel EDMS 11/03 11:35 Order name: Basic Metabolic Panel ED[facility] 11/03 11:35 Order name: CBC with Automated Diff EDMS 11/03 11:35 Order name: CBC with Automated Diff EDMS 11/03 11:35 Order name: Lipid Profile EDMS 11/03 11:35 Order name: Lipid Profile EDMS 11/03 11:35 Order name: Troponin High Sensitivity EDMS 11/03 11:35 Order name: Troponin High Sensitivity; Complete Time: 14:53 [facility] 11/03 11:35 Order name: Troponin High Sensitivity [facility] 11/03 11:37 Order name: Hemoglobin A1c; Complete Time: 14:53 [facility] 11/03 08:55 Order name: CT Stroke Brain w/o Contrast; Complete Time: 09:39 rn 11/03 08:55 Order name: Stroke CXR 1 View; Complete Time: 09:47 rn 11/03 08:55 Order name: Head Angio CT; Complete Time: 09:39 rn 11/03 08:55 Order name: Neck Angio CT; Complete Time: 09:39 rn 11/03 11:25 Order name: Echo with Doppler [facility] 11/03 11:25 Order name: Brain Wo Cont; Complete Time: 14:53 [facility] 11/03 08:36 Order name: EKG; Complete Time: 08:36 rn 11/03 11:35 Order name: CONS Physician Consult [facility] 11/03 11:35 Order name: Heart Healthy [facility] 11/03 12:11 Order name: Physical Therapy Consult [facility] 11/03 08:36 Order name: EKG - Nurse/Tech; Complete Time: 09:19 rn 11/03 08:36 Order name: Cardiac monitoring; Complete Time: 09:19 rn 11/03 08:55 Order name: Accucheck; Complete Time: 09:19 rn 11/03 08:55 Order name: IV Saline Lock; Complete Time: 09:10 rn 11/03 08:55 Order name: Labs collected and sent; Complete Time: 09:10 rn 11/03 08:55 Order name: NPO; Complete Time: 09:10 rn 11/03 08:55 Order name: O2 Per Protocol; Complete Time: 09:10 rn 11/03 08:55 Order name: O2 Sat Monitoring; Complete Time: 09:10 rn 11/03 08:55 Order name: Stroke Swallow Screen; Complete Time: 09:12 rn EC:04 Rate is 73 beats/min. Rhythm is regular. Left axis deviation noted. QRS is positive in rn lead I and negative in lead aVF. OK interval is normal. QRS interval is normal. QT interval is normal. No Q waves. T waves are Normal. No ST changes noted. Clinical impression: NSR w/ Non-specific ST/T Changes. Interpreted by me. Reviewed by me. Administered Medications: 09:34 Drug: TNK FOR STROKE - Tenecteplase IV 0.25 mg/kg {Co-Signature: jl7 (jt Rasmey RN).} Route: IV; Rate: per protocol; Site: left antecubital; 10:14 Follow up: Response: No adverse reaction ld1 10:14 Drug: foLIC Acid IVPB 1 mg Route: IVPB; Site: left antecubital; ld1 Disposition Summary: 11/03/22 09:45 Hospitalization Ordered Hospitalization Status: Inpatient Admission rn Provider: Cali Bunch rn Condition: Stable rn Problem: new rn Symptoms: are unchanged rn Bed/Room Type: Standard rn Location: Intensive Care Unit(11/03/22 14:33) bd Room Assignment: 5-(11/03/22 14:33) bd Diagnosis - Dizziness and giddiness rn - Weakness rn - Cerebral infarction, unspecified rn Forms: - Medication Reconciliation Form rn - 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 Total time: 35 rn minutes NIH Stroke Scale - NIH Stroke Score Date: 11/03/2022 Time: 08:55 Total Score = 0 10. Dysarthria (speech clarity - read or repeat words) - 0(Normal) 11. Extinction and Inattention (visual/tactile/auditory/spatial/personal) - 0(No abnormality) 1a. Level of Consciousness (LOC) - 0(Alert) 1b. Level of Consciousness (LOC) (Month \T\ Age) - 0(Both) 1c. LOC Commands (Open \T\ Closes Eyes/Electronic Semiconductor Processor) - 0(Both) 2. Best Gaze (Lateral Gaze Paresis) - 0(Normal) 3. Visual Field Loss - 0(No visual loss) 4. Facial Palsy - 0(Normal) 5a. Left Arm: Motor (10-second hold) - 0(No drift) 5b. Right Arm: Motor (10-second hold) - 0(No drift) 6a. Left Leg: Motor (5-second hold - always test supine) - 0(No drift) 6b. Right Leg: Motor (5-second hold - always test supine) - 0(No drift) 7. Limb Ataxia (finger/nose \T\ heel/merida - test with eyes open) - 0(Absent) 8. Sensory Loss (pinprick arms/legs/face) - 0(Normal) 9. Best Language: Aphasia (description/naming/reading) - 0(No aphasia) Initials: ashwin NIH Stroke Scale - NIH Stroke Score Date: 11/03/2022 Time: 09:27 Total Score = 0 10. Dysarthria (speech clarity - read or repeat words) - 0(Normal) 11. Extinction and Inattention (visual/tactile/auditory/spatial/personal) - 0(No abnormality) 1a. Level of Consciousness (LOC) - 0(Alert) 1b. Level of Consciousness (LOC) (Month \T\ Age) - 0(Both) 1c. LOC Commands (Open \T\ Closes Eyes/[employer] Processor) - 0(Both) 2. Best Gaze (Lateral Gaze Paresis) - 0(Normal) 3. Visual Field Loss - 0(No visual loss) 4. Facial Palsy - 0(Normal) 5a. Left Arm: Motor (10-second hold) - 0(No drift) 5b. Right Arm: Motor (10-second hold) - 0(No drift) 6a. Left Leg: Motor (5-second hold - always test supine) - 0(No drift) 6b. Right Leg: Motor (5-second hold - always test supine) - 0(No drift) 7. Limb Ataxia (finger/nose \T\ heel/merida - test with eyes open) - 0(Absent) 8. Sensory Loss (pinprick arms/legs/face) - 0(Normal) 9. Best Language: Aphasia (description/naming/reading) - 0(No aphasia) Initials: ld1 Signatures: Dispatcher [employer] EDMS Arpita Buchanan Roman, MD MD rn Leal, Jahala, RN RN jl7 Shefali Monsivais RN RN ld1 Elías Ramsey RN jl7 Corrections: (The following items were deleted from the chart) 10:40 08:56 Constitutional: This is a well developed, well nourished patient who is rn awake, alert, and in no acute distress. Head/Face: Normocephalic, atraumatic. Eyes: Pupils equal round and reactive to light, extra-ocular motions intact. Cardiovascular: Regular rate and rhythm. No pulse deficits. Respiratory: No increased work of breathing, no retractions or nasal flaring. Skin: Warm, dry MS/ Extremity: Pulses equal, no cyanosis. Neuro: Awake and alert, GCS 15, oriented to person, place, time, and situation. Cranial nerves II-XII grossly intact. Motor strength 4/5 in all extremities. Sensory grossly intact. Right arm some tremor when outstretched but no drift. [employer] Processor strength equal. rn 12:12 09:45 Intensive Care Unit rn lei7 12:12 09:45 ashwin alexis 14:33 12:12 [facility] ER HOLD jl7 bd 14:33 12:12 ERHOLD- [facility] bd
[2022-11-03] MEDS ORDERED: ONDANSETRON 4 MG/2 ML VIAL IV PRN (11:30)
--- NOTE | 2022-11-03 11:36 | P.HP ---
Certification for Inpatient Patient admitted to: Inpatient With expected LOS: >2 Midnights Patient will require the following post-hospital care: None Practitioner: I am a practitioner with admitting privileges, knowledge of patient current condition, hospital course, and medical plan of care. Services: Services provided to patient in accordance with Admission requirements found in Title 42 Section 412.3 of the Code of Federal Regulations Patient History Date of Service: 11/03/22 Reason for admission: Vertigo, dizziness and poor gait History of Present Illness: Patient is a 72-year-old male with a past medical history significant for hypertension, vertigo, prostate cancer who presents with complaint of sudden onset of vertigo, dizziness and poor gait onset this morning. Patient reported that he felt loss of control of right arm for aa couple minutes. Patient reported associated signs and symptoms of bilateral lower extremity weakness, nausea, chest tightness and headache. Patient denies any other signs and symptoms. Symptoms are aggravated or relieved by nothing. Patient decided to present to the hospital for medical evaluation. Allergies No Known Allergies Allergy (Verified 07/14/16 15:40) Home Medications: hydroCHLOROthiazide [Hydrochlorothiazide*] 1 tab PO DAILY 07/14/16 lisinopriL [Lisinopril] 10 mg PO DAILY 07/14/16 - Past Medical/Surgical History Diabetic: No -: HTN -: Hernia repair - Family History Mother -: Heart disease, Hypertension Notes: CHF Father -: Hypertension, Lung disease, Cancer Notes: Lung CA - Social History Smoking Status: Former smoker Alcohol use: Yes CD- Drugs: No Caffeine use: Yes Place of Residence: Home Review of Systems General: Weakness Eyes: Unremarkable ENT: Unremarkable Respiratory: Other (Chest tightness) Cardiovascular: Light Headedness Gastrointestinal: Nausea Genitourinary: Unremarkable Musculoskeletal: Unremarkable Neurological: Weakness, Other (Dizziness, vertigo, poor gait, headache) Lymphatics: Unremarkable Physical Examination - Physical Exam General: Alert, In no apparent distress, Oriented x3, Cooperative HEENT: Atraumatic, PERRLA, Mucous membr. moist/pink, EOMI, Sclerae nonicteric Neck: Supple, 2+ carotid pulse no bruit, No LAD, Without JVD or thyroid abnormality Respiratory: Clear to auscultation bilaterally, Normal air movement Cardiovascular: No edema, Regular rate/rhythm, Normal S1 S2 Capillary refill: <2 Seconds Gastrointestinal: Normal bowel sounds, Soft and benign, Non-distended, No tenderness Musculoskeletal: No clubbing, No contractures, No tenderness Integumentary: No rashes Neurological: Normal speech, Normal strength at 5/5 x4 extr, Normal tone, Normal affect Lymphatics: No axilla or inguinal lymphadenopathy - Studies Laboratory Data (last 24 hrs) 11/03/22 09:08: PT 9.9, INR 0.90, APTT 29.9 11/03/22 09:08: WBC 7.00, Hgb 15.5, Hct 46.3, Plt Count 187 11/03/22 09:08: Sodium 137, Potassium 3.6, BUN 11, Creatinine 1.08, Glucose 115 H Assessment and Plan - Plan --Suspected CVA\TIA. CT head, CTA neck\head unremarkable for any acute findings. Neurology consulted. Recommended administration Of TNK. PT eval and treat. MRI brain and echocardiogram pending for further evaluation. Will await further recommendation from neurologist. -- Vertigo. MRI brain pending for further evaluation. Patient placed on meclizine prn . Further management per neurologist. --History of prostrate cancer. Patient follows up with outpatient urologist. Continue supportive care. --Hypertension. We will allow for permissive hypertension. We will continue to monitor blood pressure levels. --Elevated troponin. Cardiology consulted. Echocardiogram pending. Telemetry to monitor for any significant further recommendation from bilingual research interviewer. --Nausea. Antiemetics on board. --Headache. Tylenol as needed. --Hypophosphatemia. Replete as needed. -- DVT prophylaxis with SCDs. Discharge Plan: Shelter Plan to discharge in: Greater than 2 days - Advance Directives Does patient have a Living Will: No Does patient have a Durable POA for Healthcare: No - Code Status/Comfort Care Code Status Assessed: Yes Physician Review: Patient Assessed, Agree with Above Assessment and Plan Critical Care: No
[2022-11-03 12:05] LABS: Magnesium 2.4 mg/dL (1.6-2.4); Phosphorus 2.3 mg/dL (2.5-4.9); Thyroid Stimulating Hormone 0.608 uIU/mL (0.358-3.740)
[2022-11-03] MEDS ORDERED: POTASS/SODIUM PHOSPHATE 1 PKT POWD.PACK PO ONE (12:30)
[2022-11-03] MEDS ORDERED: MECLIZINE HCL 12.5 MG TAB PO PRN (13:20)
--- NOTE | 2022-11-03 13:26 | RAD REPORT ---
EXAM DESCRIPTION: MRI - Brain Wo Cont - 11/03/2022 1:15 pm CLINICAL HISTORY: R O CVA COMPARISON: Noncontrast head CT and CT angiogram of the same date TECHNIQUE: Multiplanar multisequence MRI of the brain performed without IV contrast. FINDINGS: Right parasagittal 1.3 centimeter extra-axial mass near the vertex, suggestive of a small meningioma. No evidence of acute infarct or other diffusion signal abnormality. No evidence of acute intracranial hemorrhage or abnormal extra-axial fluid collections. Mild diffuse parenchymal volume loss. Ventricular caliber otherwise within normal for age. Midline st ructures are unremarkable. Scattered subcortical and deep white matter T2/FLAIR hyperintensities, nonspecific, but suggestive of chronic small vessel ischemic changes. No mass effect or midline shift. Major vascular flow voids are preserved. Mastoid air cells and paranasal sinuses are clear. IMPRESSION: No acute intracranial process. No evidence of ventriculomegaly or mass effect. Nonspecific deep white matter T2 hyperintensities, most suggestive of chronic small vessel ischemic c hanges. Incidentally noted right vertical 1.3 centimeter extra-axial mass, most suggestive of a small meningi karthikeyan.
[2022-11-03] MEDS ORDERED: ONDANSETRON 4 MG/2 ML VIAL ONE (13:41)
[2022-11-03] MEDS ORDERED: MECLIZINE HCL 12.5 MG TAB PO SCH (14:00)
[2022-11-03 17:05] VITALS: BMI 23.8
[2022-11-04 04:59] LABS: Absolute Lymphocytes (CBC) 2.2 K/uL (0.7-4.9); Hematocrit 41.9 % (39.6-49.0); Lymphocytes % 29.1 % (15.3-44.8); MCV 93.6 fL (80-100); MPV 7.9 fL (7.6-11.3); RBC Red Blood Cell Count 4.48 M/uL (4.33-5.43)
[2022-11-04 05:19] LABS: Potassium 3.4 mEq/L (3.5-5.1)
[2022-11-04 05:22] LABS: Urine Bacteria None Seen /HPF (<20); Urine Bilirubin NEGATIVE (Negative); Urine Blood Negative (Negative); Urine Clarity Clear (Clear); Urine Color Light-Yellow (Yellow); Urine Glucose NEGATIVE (Negative); Urine Mucus Slight /HPF (None Seen); Urine Protein TRACE (Negative); Urine RBC <5 /HPF (None Seen); Urine Urobilinogen Normal (Normal)
[2022-11-04] MEDS ORDERED: POTASSIUM CL SA 10 MEQ TAB PO ONE (06:23)
--- NOTE | 2022-11-04 08:12 | EKG ---
Test Date: 2022-11-03 Test Time: 09:16:50 Quality Assurance Tester: Lucy ABRAHAM MEASUREMENT RESULTS: Intervals: Rate: 73 OK: 180 QRSD: 110 QT: 418 QTc: 460 [place]: P: 68 OK: 180 QRS: -52 T: 72 INTERPRETIVE STATEMENTS: Normal sinus rhythm Incomplete right bundle branch block Left anterior fascicular block Abnormal ECG Compared to ECG 07/14/2018 19:53:55 Incomplete right bundle-branch block now present Left anterior fascicular block now present Ventricular premature complex(es) no longer present Electronically Signed On 11-04-22 08:11:00 CDT by Edd Sumner
[2022-11-04 09:33] VITALS: O2SAT 96
--- NOTE | 2022-11-04 10:01 | RAD REPORT ---
EXAM DESCRIPTION: CT - Head Brain Wo Cont - 11/04/2022 9:49 am CLINICAL HISTORY: CVA COMPARISON: November 03, 2022 TECHNIQUE: Computed axial tomography of the head was obtained. IV contrast was not requested. All CT scans are performed using dose optimization technique as appropriate and may include automated exposure control or mA/KV adjustment according to patient size. FINDINGS: An intracranial bleed is not seen The ventricles are normal in caliber No extra-axial fluid collection is noted. Mild low-density areas within periventricular, deep and subcortical white matter likely represent isc hemic changes secondary to small vessel disease. 1.3 centimeter round dense structure along the right frontal convexity is unchanged presumably a meni ngioma. No surrounding edema Fluid within the sinuses/ mastoids is not seen. IMPRESSION: No intracranial bleed status post TNK
[2022-11-04 12:46] VITALS: BP 149/72; TEMP 97
--- NOTE | 2022-11-04 12:48 | P.DS ---
Admission Date: 11/03/22 Discharge Date: 11/04/22 Disposition: ROUTINE DISCHARGE Discharge Condition: FAIR Reason for Admission: Vertigo, dizziness and poor gait - Problems (1) TIA (transient ischemic attack) Status: Acute (2) Vertigo Status: Acute Brief History of Present Illness: Patient is a 72-year-old male with a past medical history significant for hypertension, vertigo, prostate cancer who presented with complaint of sudden onset of vertigo, dizziness and poor gait onset this morning. Patient reported that he felt loss of control of right arm for a couple of minutes. Patient reported associated signs and symptoms of bilateral lower extremity weakness, nausea, chest tightness and headache. Head CT was negative. Stroke protocol initiated in the ED. Patient was given TNKase per neurology recommendation. He was hospitalized in the ICU for further management. Hospital Course: Patient admitted to the ICU for post TNKase monitoring. His neurologic symptoms including lower extremity weakness and vertigo improved significantly. Patient was ambulatory without vertigo. Repeat head CT was negative for acute disease. It demonstrated meningioma. Patient diagnosed with TIA. He has no PT needs or speech therapy. Echocardiogram done. Patient is discharged with aspirin, Plavix, folic acid and statins. He is informed to follow-up with neurology within 1 month. Vital Signs/Physical Exam: Temp Pulse Resp BP Pulse Ox 97.4 F 57 12 107/62 97 11/04/22 04:00 11/04/22 06:00 11/04/22 06:00 11/04/22 06:00 11/04/22 05:00 General: Alert, In no apparent distress, Oriented x3 HEENT: Mucous membr. moist/pink Neck: JVD not distended Respiratory: Clear to auscultation bilaterally, Normal air movement Cardiovascular: No edema, Regular rate/rhythm, Normal S1 S2 Gastrointestinal: Normal bowel sounds, Soft and benign, Non-distended Musculoskeletal: No swelling Integumentary: No rashes, No cyanosis Neurological: Normal strength at 5/5 x4 extr, Cranial nerves 3-12 intact Laboratory Data at Discharge: WBC 7.50 thou/uL (4.3-10.9) 11/04/22 04:35 Hgb 14.3 g/dL (13.6-17.9) 11/04/22 04:35 Hct 41.9 % (39.6-49.0) 11/04/22 04:35 Plt Count 184 thou/uL (152-406) 11/04/22 04:35 PT 9.9 SECONDS (9.5-12.5) 11/03/22 09:08 INR 0.90 11/03/22 09:08 APTT 29.9 SECONDS (24.3-36.9) 11/03/22 09:08 Sodium 137 mEq/L (136-145) 11/04/22 04:35 Potassium 3.4 mEq/L (3.5-5.1) L 11/04/22 04:35 BUN 14 mg/dL (7-18) 11/04/22 04:35 Creatinine 1.01 mg/dL (0.70-1.30) 11/04/22 04:35 Glucose 103 mg/dL (74-106) 11/04/22 04:35 Phosphorus 2.3 mg/dL (2.5-4.9) L 11/03/22 09:08 Magnesium 2.4 mg/dL (1.6-2.4) 11/03/22 09:08 Triglycerides 89 mg/dL (<150) 11/04/22 04:35 Cholesterol 160 mg/dL (<200) 11/04/22 04:35 HDL Cholesterol 56 mg/dL (40-60) 11/04/22 04:35 Cholesterol/HDL Ratio 2.86 11/04/22 04:35 Home Medications: Latanoprost 1 drops EACH EYE BEDTIME 11/03/22 Lisinopril/Hydrochlorothiazide [Lisinopril-Hctz 20-25 mg Tab] 1 each PO DAILY 11/03/22 Aspirin [Aspirin EC] 81 mg PO DAILY #30 tab 11/04/22 Clopidogrel Bisulfate [Plavix] 75 mg PO DAILY #30 tab 11/04/22 Folic Acid 1 mg PO DAILY #30 tab 11/04/22 Meclizine HCl [Antivert*] 25 mg PO TID PRN #30 tab 11/04/22 New Medications: Meclizine HCl [Antivert*] 25 mg PO TID PRN #30 tab PRN Reason: Vertigo Aspirin [Aspirin EC] 81 mg PO DAILY #30 tab Folic Acid 1 mg PO DAILY #30 tab Clopidogrel Bisulfate [Plavix] 75 mg PO DAILY #30 tab Diet: AHA Activity: Ad jose Followup: David Carney MD [ASSOCIATE-ACTIVE - CAN ADMIT] - (Within 1 month) Julio Turner MD [Primary Care Provider] - 1-2 Weeks Time spent managing pt's care (in minutes): 33
[2022-11-04 13:18] LABS: Potassium 3.6 mEq/L (3.5-5.1)
--- NOTE | 2022-11-05 08:57 | CON ---
Date of Consultation: 11/04/2022 Reason For Consultation: Elevated troponin. History Of Present Illness: Mr. Villalta is a 72-year-old male. He is a patient of ours in the clin . Has only had a history of hypertension. Has recently had outpatient workup that is fairly unrem arkable. He came in with an episode of dizziness, CVA was suspected, troponin was mildly elevated at 300 and was trending down. I was asked to see him. He never really had any chest pain or palpitati ons. Denied any nausea, vomiting, diaphoresis, PND, orthopnea, pedal edema, palpitation, or syncope. Denied any fever or chills. Past Medical History: As stated earlier. Allergies: NONE. Medications: At home include lisinopril, hydrochlorothiazide. Review of Systems: Negative. Social History: Negative. Family History: Negative. Physical Examination: General: Very pleasant, neurologically nonfocal. Vital Signs: Stable, sinus rhythm, afebrile. HEENT: Negative. Neck: Supple with no bruit. Chest: Clear. Cardiac: Revealed a regular rhythm and rate. No murmurs, gallops, or rubs. Abdomen: Benign. Extremities: Revealed no clubbing, cyanosis, or edema. Diagnostic Data: Showed a troponin of 300. Chest x-ray was normal. Neck CTA was negative. Head CT angiogram was negative. MRI showed a possible small meningioma. Impression And Plan: Mr. Villalta certainly had a transient ischemic attack. I doubt that it is atr ial fibrillation, it is possible. Neurology's consultation is pending. He probably should be at [facility] on aspirin and maybe Plavix, consider a statin. Echocardiogram that was done today was perfectly normal. I think as an outpatient, we should consider having event monitor and may be another [place] n down the road because of his elevated troponin. I will see him in the office soon, but he can go h ome after Neurology see him. NB/MODL Voice ID: [id number] Report ID: [id number]
--- NOTE | 2022-11-05 11:00 | ECHO ---
HEIGHT: 5 ft 11 in WEIGHT: 171 lb 1 oz DATE OF STUDY: 11/04/[address]: Dino Sky 2-DIMENSIONAL: YES M.MODE: YES DOPPLER: YES COLOR FLOW: YES TDS: NO PORTABLE: YES DEFINITY: NO BUBBLE STUDY: NO DIAGNOSIS: SUSPECTED TRANSIENT CARDIAC HISTORY: CATHERIZATION: SURGERY: PROSTHETIC VALVE: PACEMAKER: MEASUREMENTS (cm) DIASTOLIC (NORMALS) SYSTOLIC (NORMALS) IVSd 0.9 (0.6-1.2) LA Diam 3.8 (1.9-4.0) LVEF 76% LVIDd 4.7 (3.5-5.7) LVIDs 2.6 (2.0-3.5) %FS 45% LVPWd 1.1 (0.6-1.2) Ao Diam 3.2 (2.0-3.7) 2 DIMENSIONAL ASSESSMENT: RIGHT ATRIUM: NORMAL LEFT ATRIUM: NORMAL RIGHT VENTRICLE: NORMAL LEFT VENTRICLE: NORMAL TRICUSPID VALVE: NORMAL MITRAL VALVE: NORMAL PULMONIC VALVE: NORMAL AORTIC VALVE: NORMAL PERICARDIAL EFFUSION: NONE AORTIC ROOT: NORMAL LEFT VENTRICULAR WALL MOTION: NORMAL. DOPPLER/COLOR FLOW: NORMAL. COMMENTS: NORMAL 2D ECHO WITH DOPPLER NO VEGETATION OR THROMBUS TECHNOLOGIST: ISIAH RODGERS
== END 2022-11-04 13:12 | disposition home or self-care (01) | DRG 63 ==
LOC: ER 08:29 → ERHOLD 11:25 → 3RD-ICU 15:02
PROVIDERS: ADMIT Hospitalist; ATTEND Internal Medicine
DX: G45.9 Transient cerebral ischemic attack, unspecified (principal); D32.9 Benign neoplasm of meninges, unspecified; I10 Essential (primary) hypertension; E83.39 Other disorders of phosphorus metabolism; G83.11 Monoplegia of lower limb affecting right dominant side; G83.14 Monoplegia of lower limb affecting left nondominant side; R51.9 Headache, unspecified; R42 Dizziness and giddiness; R53.1 Weakness; R11.0 Nausea; R77.8 Other specified abnormalities of plasma proteins; R29.700 NIHSS score 0; Z85.46 Personal history of malignant neoplasm of prostate; Z79.02 Long term (current) use of antithrombotics/antiplatelets; Z79.82 Long term (current) use of aspirin; Z87.891 Personal history of nicotine dependence; Z79.899 Other long term (current) drug therapy
CPT/HCPCS: 36415; 70450; 70496; 70498; 70551; 71045; 80048; 80061; 81001; 82565; 82947; 83036; 83735; 84100; 84439; 84443; 84484; 85025; 85610; 85730; 92977; 93005; 93306; 96374; 96375; 97116; 97161; 99285; J2405; J3101; Q9967

== ENCOUNTER 2022-12-29 18:56 | Emergency (ER) | payer OTHER ==
--- OUTSIDE RECORDS SUMMARY | 2022-12-29 19:05 | XMS REPORT | Continuity of Care Document ---
:1950 Author Organization [facility] t Address [address] [place] [address] [place] [id number] Care Team Providers Name Role Phone RICHAR TOWNSEND Primary Care Physician Unavailable CARSON FOY Attending Clinician Unavailable Carson Foy MD Attending Clinician , [facility] Regulo Parker Attending Clinician Unavailable Payers Payer Name Policy Type Policy Number Effective Date Expiration Date S bogdan [employer] MEDICARE O [id number] 2021 POS PPO 00:00:00 Problems Condition Condition Condition Status Onset Resolution Last Treating Co mments Source Name Details Category Date Date Treatment Clinician Date [id number] Cancer of Problem Active Comm on prostate [facility] w/low - [facility] (T1-2a, [facility] & PSA<10) [id number] BPH loc w Problem Active Com mon urin [facility] obs/LUTS - [facility] Malignant CA of Problem Active Common tumor of prostate [facility] prostate - [facility] Allergies, Adverse Reactions, Alerts Allergy Allergy Status Severity Reaction(s) Onset Inactive Treating Comm ents Source Name Type Date Date Clinician NO KNOWN Allergy Active [facility] Social History Social Habit Start Date Stop Date Quantity Comments Source History of Tobacco Use Co mmon [facility] Sex Assigned At Com mon [facility] Smoking Status Start Date Stop Date Source Never Smoker Common [facility] Medications Ordered Filled Start Stop Current Ordering Indication Dosage Frequency Signature Comments Components Source Medication Medication Date Date Medication? Clinician (SIG) Name Name Gentamicin Gentamicin 2019-07 No 160mg Common 80mg 80mg 08-04 [facility] 00:00: [facility] Gentamicin Gentamicin 2019-07 No 160mg Common 80mg 80mg 08-04 [facility] 00:00: [facility] hydroCHLORO hydroCHLORO No 1{capsu QD hydroCHLOR thiazide [...] Comments Source height 2022-02-26 14:15:00 71 [in_i] [facility] weight 2022-02-26 14:15:00 183 [lb_av] [facility] temperature 2022-02-26 14:15:00 98.6 [degF] [facility] bmi 2022-02-26 14:15:00 25.52 kg/m2 [facility] oximetry 2022-02-26 14:15:00 99 % [facility] respiratory rate 2022-02-26 14:15:00 18 /min Comm on [facility] blood pressure 2022-02-26 14:15:00 138 mm[Hg] Common [facility] - systolic [facility] blood pressure 2022-02-26 14:15:00 73 mm[Hg] [facility] diastolic [facility] height 2021-12-11 13:00:00 71 [in_i] [facility] weight 2021-12-11 13:00:00 174 [lb_av] [facility] temperature 2021-12-11 13:00:00 97.9 [degF] [facility] bmi 2021-12-11 13:00:00 24.27 kg/m2 [facility] oximetry 2021-12-11 13:00:00 99 % [facility] respiratory rate 2021-12-11 13:00:00 16 /min Comm on [facility] blood pressure 2021-12-11 13:00:00 149 mm[Hg] [facility] systolic [facility] blood pressure 2021-12-11 13:00:00 78 mm[Hg] [facility] diastolic [facility] Procedures Procedure Date / Time Performed Performing Clinician [facility] e MR PELVIS WITH & 2022-01-03 16:54:00 Carson Foy [facility] WITHOUT IV CONTRAST Center Plan of Care Planned Activity Planned Date Details Comments Source Future Scheduled 2023-03-[address] [facility] Test 00:00:00 (Season Ended) [code = Medic al Center INFLUENZA VACCINE (Season Ended)] Future Scheduled 2023-03-[address] [facility] Test 00:00:00 (Season Ended) [code = Medic al Center Influenza Vaccine (Season Ended)] Future Scheduled 2022-07-[address] [facility] 00:00:00 WELLNESS (YEAR 2 or Medical Center FIRST YEAR if no IPPE) [code = MEDICARE ANNUAL WELLNESS (YEAR 2 or FIRST YEAR if no IPPE)] Future Scheduled 2022-07-[address] [...] RISK Medical C enter SCREENING] Future Scheduled 2022-07-[address] [...] 65+ YRS (1 - PCV)] Future Scheduled 2017 PNEUMOCOCCAL 65+ YRS ([address] [facility] Test 00:00:00 - PCV) [code = Medical Cente r PNEUMOCOCCAL 65+ YRS (1 - PCV)] Future Scheduled 2002 SHINGLES VACCINES ([address] [facility] Test 00:00:00 2) [code = SHINGLES Medical Center VACCINES (1 of 2)] Future Scheduled 2002 SHINGLES VACCINES ([address] [facility] Test 00:00:00 2) [code = SHINGLES Medical Center VACCINES (1 of 2)] Future Scheduled 1971-09-17 DTAP/TDAP/TD [facility]ACCINES [facility] 00:00:00 (1 - Tdap) [code = Medical C enter DTAP/TDAP/TD VACCINES (1 - Tdap)] Future Scheduled 1971-09-17 DTAP/TDAP/TD [facility]ACCINES [facility] 00:00:00 (1 - Tdap) [code = Medical C enter DTAP/TDAP/TD VACCINES (1 - Tdap)] Future Scheduled 1970 HEPATITIS C [facility]CREENING [facility] 00:00:00 [code = HEPATITIS C Medical Center SCREENING] Future Scheduled 1970 HEPATITIS C [facility]CRE[facility]ING [facility] 00:00:00 [code = HEPATITIS C Medical Center SCREENING] Future Scheduled [address] [facility] Test 00:00:00 Counseling and Medical Cente r Screening (12+) [code = Tobacco Cessation Counseling and Screening (12+)] Future Scheduled [address] [facility] Test 00:00:00 Counseling and Medical Cente r Screening (12+) [code = Tobacco Cessation Counseling and Screening (12+)] Future Scheduled 1951-03-19 COVID-19 VACCINE (#1) [facility] 00:00:00 [code = COVID-[address] VACCINE (#1)] Future Scheduled 1951-03-19 COVID-19 VACCINE (#1) [facility] 00:00:00 [code = COVID-[address] VACCINE (#1)] Future Scheduled 1952 CT Colonography (combo) [facility] Test 00:00:00 [code = CT Colonography [facility] (combo)] Future Scheduled 1950 Screening for malignant [facility] Test 00:00:00 neoplasm of colon Medical Ce nter (procedure) [code = 109595370] Future Scheduled 1952 Screening for malignant [facility] Test 00:00:00 neoplasm of colon Medical Ce nter (procedure) [code = 079513467] Future Scheduled 1952 Screening for malignant [facility] Test 00:00:00 neoplasm of colon Medical Ce nter (procedure) [code = 317155965] Future Scheduled 1952 Screening for malignant [facility] Test 00:00:00 neoplasm of colon Medical Ce nter (procedure) [code = 396288224] Future Scheduled 1950 Sigmoidoscopy [code = [facility] 00:[facility]:00 Sigmoidoscopy] Medical Cente r Future Scheduled 1952 Screening for malignant [facility] Test 00:00:00 neoplasm of colon Medical Ce nter (procedure) [code = 223875044] Future Scheduled 1952 Screening for malignant [facility] Test 00:00:00 neoplasm of colon Medical Ce nter (procedure) [code = 622374309] Future Scheduled 1950 Sigmoidoscopy [code = [facility] 00:00:00 Sigmoidoscopy] Medical Cente r Future Scheduled 1952 CT Colonography (combo) [facility] Test 00:00:00 [code = CT Colonography [facility] (combo)] Future Scheduled 1950 Screening for malignant [facility] Test 00:00:00 neoplasm of colon Medical Ce nter (procedure) [code = 468635197] Future Scheduled 1950 Screening for malignant [facility] Test 00:00:00 neoplasm of colon Medical Ce nter (procedure) [code = 408717588] Encounters Start End Encounter Admission Attending Care Care Encounter Source Date/Time Date/Time Type Type Clinicians Facility Department ID 2021-07-31 Outpatient [facility] [id number] Common 13:11:37 [id number] [facility] 2021-07-31 Outpatient [facility] [id number] Common 12:11:04 [id number] [facility] 2022-02-26 2022-02-26 OFFICE [facility] [id number] Co mmon 00:00:00 00:00:00 VISIT EST Spir it PT LEVEL 3 - [facility] 2022-01-03 2022-01-03 [facility] [id number] [facility] 14:51:01 23:59:00 [facility] 2022-01-03 2022-01-03 [facility] [id number] 14:51:01 23:59:00 Encounter 3, [facility] Regulo [facility] 2022-01-03 2022-01-03 [facility] [id number] 14:51:01 23:59:00 Encounter [facility] 2021-12-16 2021-12-16 Outside [facility] [id number] 00:00:00 00:00:00 Orders [facility] 2021-12-11 2021-12-11 OFFICE [facility] [id number] Co mmon 00:00:00 00:00:00 VISIT EST Spir it PT LEVEL 3 - [facility] 2021-01-11 2021-01-11 Outpatient [facility] [id number] Common 00:00:00 00:00:00 [facility] 2021-01-03 2021-01-03 Outpatient [facility] [id number] Common 00:00:00 00:00:00 [facility] 2020-06-11 2020-06-11 Outpatient [facility] [id number] Common 00:00:00 00:00:00 [facility] Results Test Description Test Time Test Comments Results Result [facility] e Comments MR, PELVIS, 2022-01-13 Unlisted Reason WITHOUT / WITH IV 12:12:00 for Exam - Click CONTRAST Yes and Enter Reason [facility] for MOO VILLALTA Exam->CANCER OF [...] chronic bladder outlet obstruction Signed: Galindo Chawla [facility] Verified Date/Time: 01/13/2022 12:12:27 Reading Location: [facility] B1 C013Y CT Body Reading Room
[2022-12-29 19:51] LABS: Absolute Lymphocytes (CBC) 1.9 K/uL (0.7-4.9); MCV 90.8 fL (80-100); MPV 7.6 fL (7.6-11.3); RBC Red Blood Cell Count 4.63 M/uL (4.33-5.43)
[2022-12-29] MEDS ORDERED: METOCLOPRAMIDE 10 MG/2mL INJ ONE (19:57)
[2022-12-29] MEDS ORDERED: ONDANSETRON 4 MG/2 ML VIAL ONE (19:57)
[2022-12-29] MEDS ORDERED: MORPHINE 4 MG/ML SYR ONE (19:57)
[2022-12-29] MEDS ORDERED: NA CHLORIDE 0.9% 500 ML ONE (19:58)
[2022-12-29 20:09] LABS: Protime INR 0.99
[2022-12-29 20:13] LABS: Potassium 2.8 mEq/L (3.5-5.1); Troponin High Sensitivity 16.8 pg/mL (<58.9)
--- NOTE | 2022-12-29 20:13 | RAD REPORT ---
EXAM DESCRIPTION: CT - Head Brain Wo Cont - 12/29/2022 7:58 pm CLINICAL HISTORY: Headache COMPARISON: November 2022 TECHNIQUE: Computed axial tomography of the head was obtained. IV contrast was not requested. All CT scans are performed using dose optimization technique as appropriate and may include automated exposure control or mA/KV adjustment according to patient size. FINDINGS: An intracranial bleed is not seen The ventricles are normal in caliber No extra-axial fluid collection is noted. Mild low-density areas within periventricular, deep and subcortical white matter likely represent isc hemic changes secondary to small vessel disease. Fluid within the sinuses/ mastoids is not seen. IMPRESSION: No acute intracranial abnormality is seen If patient's symptoms persist MRI of the brain would be recommended
--- NOTE | 2022-12-29 20:50 | ER ---
Nurse's Notes [facility] Name: Moo Villalta Age: 72 yrs Sex: Male : 1950 Arrival Date: 12/29/2022 Time: 18:56 Bed 5 Private MD: Julio Turner B Diagnosis: Essential (primary) hypertension;Headache Presentation: 12/29 19:16 Chief complaint: Patient states: Blood pressure has been going up on , got nj1 better on Thursday and back up high today. SBP was 189. "I have pressure in my head, temples are throbbing". Seen here in November, had a TIA. Coronavirus screen: Vaccine status: Patient reports receiving the 2nd dose of the covid vaccine. Ebola Screen: Patient denies travel to an Ebola-affected area in the 21 days before illness onset. Initial Sepsis Screen: Does the patient meet any 2 criteria? No. Patient's initial sepsis screen is negative. Does the patient have a suspected source of infection? No. Patient's initial sepsis screen is negative. Risk Assessment: Do you want to hurt yourself or someone else? Patient reports no desire to harm self or others. Onset of symptoms was December 25, 2022. 19:16 Method Of Arrival: Ambulatory [facility] 19:16 Acuity: ANDREW 3 nj1 Historical: - Allergies: 19:20 No Known Allergies; nj1 - PMHx: 19:20 Hypertension; prostate problems; Transient cerebral ischemia; nj1 - Immunization history:: Client reports receiving the 2nd dose of the Covid vaccine. - Social history:: Smoking status: Patient denies any tobacco usage or history of. - Family history:: not pertinent. - Hospitalizations: : No recent hospitalization is reported. Screenin:47 [facility] ED Fall Risk Assessment (Adult) History of falling in the last 3 months, kl including since admission No falls in past 3 months (0 pts) Confusion or Disorientation No (0 pts) Intoxicated or Sedated No (0 pts) Impaired Gait No (0 pts) Mobility Assist Device Used No (0 pt) Altered Elimination No (0 pt) Score/Fall Risk Level 0 - 2 = Low Risk Oriented to surroundings, Maintained a safe environment. Abuse screen: Denies threats or abuse. Nutritional screening: No deficits noted. Tuberculosis screening: No symptoms or risk factors identified. Assessment: 19:46 General: Appears uncomfortable, well groomed, well developed, Behavior is calm, kl cooperative. Pain: Complains of pain in top of head and forehead Pain currently is 7 out of 10 on a pain scale. Quality of pain is described as aching. Neuro: Level of Consciousness is awake, alert, obeys commands, Oriented to person, place, time, situation, [employer] are equal bilaterally Speech is normal, Facial symmetry appears normal. Cardiovascular: Rhythm is regular. Respiratory: No deficits noted. GI: No deficits noted. No signs and/or symptoms were reported involving the gastrointestinal system. : No deficits noted. No signs and/or symptoms were reported regarding the genitourinary system. 20:15 Reassessment: Patient appears in no apparent distress at this time. Patient is alert, kl oriented x 3, equal unlabored respirations, skin warm/dry/pink. Patient denies pain at this time. Patient states feeling better. Patient states symptoms have improved. Vital Signs: 19:16 BP 187 / 103; Pulse 65; Resp 18; Temp 98.2; Pulse Ox 99% ; Weight 80.74 kg; Height 5 nj1 ft. 11 in. ; Pain 0/10; 19:47 BP 195 / 98; Pulse 78; Resp 16; Pulse Ox 98% on R/A; kl 20:15 BP 170 / 90; Pulse 67; kl 20:42 BP 146 / 87; Pulse 68; Pulse Ox 96% on R/A; kl 19:16 Body Mass Index 24.83 (80.74 kg, 180.34 cm) nj1 19:16 Pain Scale: Adult [facility] ED Course: 18:56 Patient arrived in ED. mr 18:56 Julio Turner MD is Private Physician. mr 19:20 Triage completed. nj1 19:21 Arm band placed on right wrist. nj1 19:22 Noah Bunch MD is Attending Physician. rn 19:45 Papito Tavares RN is Primary Nurse. jb4 19:45 Inserted saline lock: 20 gauge in left forearm, using aseptic technique. Blood kl collected. 19:45 Protime (+inr) Sent. kl 19:45 Ptt, Activated Sent. kl 19:45 Basic Metabolic Panel Sent. kl 19:45 CBC with Diff Sent. kl 19:47 Patient has correct armband on for positive identification. Bed in low position. Call kl light in reach. Side rails up X 1. Client placed on continuous cardiac and pulse oximetry monitoring. NIBP monitoring applied. Door closed. Noise minimized. Warm blanket given. 20:00 CT Head Brain wo Cont In Process Unspecified. EDMS 21:02 No provider procedures requiring assistance completed. IV discontinued, intact, kl bleeding controlled, No redness/swelling at site. Pressure dressing applied. Administered Medications: 19:55 Drug: NS 0.9% IV 500 ml Route: IV; Rate: bolus; Site: left antecubital; kl 21:04 Follow up: IV Status: Completed infusion; IV Intake: 500ml kl 19:55 Drug: metoCLOPramide IVP 10 mg Route: IVP; Site: left antecubital; kl 21:04 Follow up: Response: No adverse reaction; Marked relief of symptoms kl 20:00 Drug: morphine IVP or IV 2 mg Route: IVP; Infused Over: 4 mins; Site: left antecubital; kl 21:04 Follow up: Response: No adverse reaction; Marked relief of symptoms kl 20:04 Drug: Ondansetron IVP 4 mg Route: IVP; Site: left antecubital; kl 21:04 Follow up: Response: No adverse reaction; Marked relief of symptoms kl 20:51 Drug: Potassium PO Effervescent Tablet 50 mEq Route: PO; kl 21:03 Follow up: Response: No adverse reaction Medication: 19:46 VIS not applicable for this client. kl Intake: 21:04 IV: 500ml; Total: 500ml. kl Outcome: 20:50 Discharge ordered by . rn 21:03 Discharged to home ambulatory, with family. kl 21:03 Condition: improved 21:03 Discharge instructions given to patient, Instructed on discharge instructions, follow up and referral plans. Demonstrated understanding of instructions, follow-up care. 21:03 Patient left the ED. Signatures: Dispatcher [employer] EDCO Jessica Espinoza RN RN Lisette Gagnon Roman, MD MD rn Bryson, James, RN RN jb4 Riri Cisneros RN RN nj1
--- NOTE | 2022-12-29 20:50 | EDPHYS ---
Physician Documentation [facility] [place] Name: Moo Villalta Age: 72 yrs Sex: Male : 1950 Arrival Date: 12/29/2022 Time: 18:56 Bed 5 Private MD: Julio Turner B ED Physician Noah Bunch HPI: 12/29 20:47 This 72 yrs old Male presents to ER via Ambulatory with complaints of High Blood rn Pressure. 20:47 The patient has elevated blood pressure and discovered this at home. Onset: The rn symptoms/episode began/occurred 3 day(s) ago. Modifying factors: The symptoms are alleviated by OTC meds. Associated signs and symptoms: Pertinent positives: headache, Pertinent negatives: chest pain, lightheadedness, vomiting, weakness. Severity of symptoms: At its worst the blood pressure was moderate, in the emergency department the blood pressure is improved. The patient has experienced similar episodes in the past. The patient has not recently seen a physician. Historical: - Allergies: 19:20 No Known Allergies; nj1 - PMHx: 19:20 Hypertension; prostate problems; Transient cerebral ischemia; nj1 - Immunization history:: Client reports receiving the 2nd dose of the Covid vaccine. - Social history:: Smoking status: Patient denies any tobacco usage or history of. - Family history:: not pertinent. - Hospitalizations: : No recent hospitalization is reported. ROS: 20:47 Constitutional: Negative for fever, chills, and weight loss, Eyes: Negative for injury, rn pain, redness, and discharge, Neck: Negative for injury, pain, and swelling, Cardiovascular: Negative for chest pain, palpitations, and edema, Respiratory: Negative for shortness of breath, cough, wheezing, and pleuritic chest pain, Abdomen/GI: Negative for abdominal pain, nausea, vomiting, diarrhea, and constipation, Back: Negative for injury and pain, MS/Extremity: Negative for injury and deformity, Skin: Negative for injury, rash, and discoloration, Neuro: Negative for weakness, numbness, tingling, and seizure. Exam: 20:47 Constitutional: This is a well developed, well nourished patient who is awake, alert, rn and in no acute distress. Head/Face: Normocephalic, atraumatic. Eyes: Pupils equal round and reactive to light, extra-ocular motions intact. Cardiovascular: Regular rate and rhythm. No pulse deficits. Respiratory: No increased work of breathing, no retractions or nasal flaring. Abdomen/GI: Soft, non-tender Skin: Warm, dry with normal turgor. Normal color with no rashes, no lesions, and no evidence of cellulitis. MS/ Extremity: Pulses equal, no cyanosis. Neurovascular intact. Full, normal range of motion. Equal circumference. Neuro: Awake and alert, GCS 15, oriented to person, place, time, and situation. Cranial nerves II-XII grossly intact. Motor strength 5/5 in all extremities. Sensory grossly intact. Cerebellar exam normal. Normal gait. Vital Signs: 19:16 BP 187 / 103; Pulse 65; Resp 18; Temp 98.2; Pulse Ox 99% ; Weight 80.74 kg; Height 5 nj1 ft. 11 in. ; Pain 0/10; 19:47 BP 195 / 98; Pulse 78; Resp 16; Pulse Ox 98% on R/A; kl 20:15 BP 170 / 90; Pulse 67; kl 20:42 BP 146 / 87; Pulse 68; Pulse Ox 96% on R/A; kl 19:16 Body Mass Index 24.83 (80.74 kg, 180.34 cm) nj1 19:16 Pain Scale: Adult nj1 MDM: 19:22 Patient medically screened. rn 20:47 Differential diagnosis: hypertensive crisis, Malignant HTN, intracerebral hemorrhage. rn Data reviewed: vital signs, nurses notes, lab test result(s), EKG, radiologic studies, CT scan, and as a result, I will discharge patient. Counseling: I had a detailed discussion with the patient and/or guardian regarding: the historical points, exam findings, and any diagnostic results supporting the discharge/admit diagnosis, lab results, radiology results, the need for outpatient follow up, to return to the emergency department if symptoms worsen or persist or if there are any questions or concerns that arise at home. Response to treatment: the patient's symptoms have markedly improved after treatment, and as a result, I will discharge patient. Special discussion: I have referred the patient to see his PCP for further evaluation of high blood pressure. I discussed with the patient/guardian in detail that at this point there is no indication for admission to the hospital. It is understood, however, that if the symptoms persist or worsen the patient needs to return immediately for re-evaluation. 20:47 ED course: Pt improved, ambulatory to bathroom, neg workup here for end-organ damage, rn will dc home as BP now 140s/80s, has cardiology appt in 2 days already setup. Return precautions given and understood. . 12/29 19:23 Order name: CBC with Diff; Complete Time: 20:13 rn 12/29 19:23 Order name: Basic Metabolic Panel; Complete Time: 20:13 rn 12/29 19:23 Order name: Protime (+inr); Complete Time: 20:13 rn 12/29 19:23 Order name: Ptt, Activated; Complete Time: 20:13 rn 12/29 19:23 Order name: Troponin High Sensitivity; Complete Time: 20:13 rn 12/29 19:23 Order name: CT Head Brain wo Cont; Complete Time: 20:47 rn 12/29 19:23 Order name: EKG; Complete Time: 19:24 rn 12/29 19:23 Order name: IV Start; Complete Time: 19:45 rn 12/29 19:23 Order name: EKG - Nurse/Tech; Complete Time: 20:15 rn Administered Medications: 19:55 Drug: NS 0.9% IV 500 ml Route: IV; Rate: bolus; Site: left antecubital; kl 21:04 Follow up: IV Status: Completed infusion; IV Intake: 500ml kl 19:55 Drug: metoCLOPramide IVP 10 mg Route: IVP; Site: left antecubital; kl 21:04 Follow up: Response: No adverse reaction; Marked relief of symptoms kl 20:00 Drug: morphine IVP or IV 2 mg Route: IVP; Infused Over: 4 mins; Site: left antecubital; kl 21:04 Follow up: Response: No adverse reaction; Marked relief of symptoms kl 20:04 Drug: Ondansetron IVP 4 mg Route: IVP; Site: left antecubital; kl 21:04 Follow up: Response: No adverse reaction; Marked relief of symptoms kl 20:51 Drug: Potassium PO Effervescent Tablet 50 mEq Route: PO; kl 21:03 Follow up: Response: No adverse reaction kl Disposition Summary: 12/29/22 20:50 Discharge Ordered Location: Home rn Problem: new rn Symptoms: have improved rn Condition: Stable rn Diagnosis - Essential (primary) hypertension rn - Headache rn Followup: rn - With: Private Physician - When: As needed - Reason: Recheck today's complaints, Re-evaluation by your physician Discharge Instructions: - Discharge Summary Sheet rn - Hypertension, Adult rn - How to Take Your Blood Pressure, [id number] rn - Managing Your Hypertension rn Forms: - Medication Reconciliation Form rn - Thank You Letter rn - Antibiotic director furniture - Prescription Opioid Use rn - [email or web address] rn Signatures: Dispatcher [employer] Jessica Zepeda, RN RN Noah Jordan MD MD rn Jaco, Norma, RN RN nj1
[2022-12-29] MEDS ORDERED: POTASSIUM 25 MEQ EFFERV TAB ONE (20:54)
[2022-12-29 21:24] VITALS: TEMP 98.2
[2022-12-29 21:32] VITALS: BP 146/87; O2SAT 96
--- NOTE | 2022-12-30 20:38 | EKG ---
Test Date: 2022-12-29 Test Time: 19:51:39 Negative Cutter: ELLEN MEASUREMENT RESULTS: Intervals: Rate: 59 PA: 176 QRSD: 106 QT: 442 QTc: 437 Lengby: P: 76 PA: 176 QRS: -29 T: 28 INTERPRETIVE STATEMENTS: Sinus bradycardia Otherwise normal ECG Compared to ECG 11/03/2022 09:16:50 Sinus rhythm no longer present Incomplete right bundle-branch block no longer present Left anterior fascicular block no longer present Electronically Signed On 12-30-22 20:33:03 CDT by Edd Sumner
== END 2022-12-29 21:03 | disposition home or self-care (01) ==
LOC: ER 18:56
DX: I10 Essential (primary) hypertension (principal); R51.9 Headache, unspecified
CPT/HCPCS: 85025; 80048; 36415; 85610; 85730; 84484; 70450; J2765; J2405; J7040; 93005